=== PATIENT | female | born 1955 | race Caucasian/White ===

== ENCOUNTER 2022-02-02 16:46 | Outpatient (CLI) | payer OTHER, SELFPAY ==
[2022-02-02 18:44] LABS: Hepatitis B Surface Antigen* Negative (Negative)
[2022-02-02 19:09] LABS: HIV 1/2/P24 Combo Screen* Negative (Negative)
[2022-02-02 20:54] LABS: Hepatitis B Surface Antibody* Negative (Negative)
[2022-02-04 14:36] LABS: Hepatitis B Core Antibodies Negative (Negative)
[2022-02-04 17:45] LABS: Rapid Plasma Reagin (RPR) Non Reactive (Non Reactive)
== END 2022-02-02 16:47 | disposition home or self-care (01) ==
PROVIDERS: PCP Internal Medicine; Visit Provider Internal Medicine
DX: N94.9 Unspecified condition associated with female genital organs and menstrual cycle (principal); Z11.3 Encounter for screening for infections with a predominantly sexual mode of transmission; B00.1 Herpesviral vesicular dermatitis
CPT/HCPCS: 86592; 86703; 86704; 86706; 87340

== ENCOUNTER 2022-03-30 10:18 | Outpatient (CLI) | payer OTHER, SELFPAY ==
[2022-03-30 09:04] LABS: Cholesterol* 235 mg/dL (90-199); Glucose* 97 mg/dL (60-115); HDL Cholesterol* 69 mg/dL (>=50); LDL Cholesterol Calculated 144 mg/dL (<100); Triglycerides* 110 mg/dL (40-149)
== END 2022-03-30 10:19 | disposition home or self-care (01) ==
PROVIDERS: PCP Internal Medicine; Visit Provider Internal Medicine
DX: E78.5 Hyperlipidemia, unspecified (principal); Z13.1 Encounter for screening for diabetes mellitus
CPT/HCPCS: 80061; 82947

== ENCOUNTER 2022-05-09 15:13 | Outpatient (CLI) | payer OTHER, SELFPAY ==
--- OUTSIDE RECORDS SUMMARY | 2022-05-09 15:14 | XMS_ITS | Encounter Summary ---
:1955 Author Organization [facility] Address [address] [place] [address] Care Team Providers Name Role Phone Martín Taylor MD Primary Care Provider Reason for Visit Reason Comments Follow-up Encounter Details Date Type Department Care Team Description 03/21/2019 Hospital Encounter [place] [facility] Wyatt Coffman MD [address] [place] [address] (CONVERSION) John, MD Mando CONV OF DATA PN TO [address] [place] [address] Social History Tobacco Use Types Packs/Day Years Used Date Smoking Tobacco: Former Cigarettes Quit : 12/08/1994 Smokeless Tobacco: Never Alcohol Use Standard Drinks/Week Comments Yes 0 (1 standard drink = 0.6 oz pure alcoho l) occassion Sex Assigned at Date Recorded Not on file documented as of this encounter Medications at Time of Discharge Medication Sig Dispensed Refills Start Date End Date atorvastatin (LIPITOR) 10 MG Take 5 mg by mouth. 0 05/17/2016 tablet Calcium Carbonate-Vitamin D Take 1 tablet by 0 (CALCIUM 600+D OR) mouth daily (every 24 hours). cholecalciferol (AKA VITAMIN Take 1,000 Units by 0 12/08/2014 D3) 1000 UNITS tablet mouth daily (every 24 hours). LORazepam (ATIVAN) 2 MG Take 2 mg by mouth. 0 11/2016 tablet Magnesium 200 MG Take 1 tablet by 0 12/08/2014 mouth 3 times daily. omega-3 fatty acids (FISH Take 1 capsule by 0 OIL) 1000 MG capsule mouth daily (every 24 hours). traZODone (DESYREL) 50 MG Take 50 mg by 0 017 tablet mouth. documented as of this encounter Plan of Treatment Not on filedocumented as of this encounter Visit Diagnoses Not on filedocumented in this encounter Care Teams Artificial Leather Calender Operator Relationship Specialty Start Date End Date Martín Taylor MD PCP - General 01/04/[address] [place] [id number] documented as of this encounter
--- OUTSIDE RECORDS SUMMARY | 2022-05-09 15:14 | XMS_ITS | Clinical Summary ---
:1955 Author Organization [facility] Address [address] [place] [address] Care Team Providers Name Role Phone Martín Taylor MD Primary Care Provider Source Comments You are receiving this document as you are listed as the primary care provider,follow-up provider, or the patient has been referred to you for consultation.This is in compliance with the Medicare and Medicaid EHR Incentive Program,which states Providers who transition their patient to another setting of careor provider of care or refers their patient to another provider of care shouldprovide summarycare record for each transition of care or referral. RSB SPINE Allergies Active Allergy Reactions Severity Noted Date Comments Sulfa Antibiotics Itching, Rash 12/08/2014 OHC React ion: Itching; OHC Reaction: Rash; OHC Severity: Med Medications Medication Sig Dispensed Refills Start Date End Date Status omega-3 fatty acids Take 1 capsule 0 12/08/2014 Active (FISH OIL) 1000 MG by mouth daily capsule (every 24 hours). cholecalciferol (AKA Take 1,000 Units 0 12/08/2014 Active VITAMIN D3) 1000 UNITS by mouth daily tablet (every 24 hours). Calcium Take 1 tablet by 0 12/08/2014 Ac tive Carbonate-Vitamin D mouth daily (CALCIUM 600+D OR) (every 24 hours). Magnesium 200 MG Take 1 tablet by 0 12/08/2014 Active mouth 3 times daily. traZODone (DESYREL) 50 Take 50 mg by 0 03/19/2017 Active MG tablet mouth. atorvastatin (LIPITOR) Take 5 mg by 0 05/17/2016 Active 10 MG tablet mouth. LORazepam (ATIVAN) 2 MG Take 2 mg by 0 02/21/2017 Active tablet mouth. Active Problems Problem Noted Date Genital prolapse, old laceration of muscles of pelvic floor 05/01/2017 Generalized anxiety disorder 04/17/2017 Hyperlipidemia 04/17/2017 Lateral epicondylitis 04/19/2007 Degeneration of lumbar or lumbosacral intervertebral d isc 04/19/2007 Congenital spondylolisthesis 04/19/2007 Immunizations Name Administration Dates Next Due Flu Vac (3+ yrs) 03/07/2016, 03/15/2015 Flu Vac Preserv Free (3+yrs) 04/09/2001 Influenza (Flucelvax), Preserv Free 03/27/2018, 03/22/2017, 03/18/2013 Influenza IIV4 (Quadrivalent) 0.5mL 03/21/2019 (72751) Influenza IIV4 (Quadrivalent) Fluzone, 02/15/2012 65+ Yrs TDAP (ADACEL) 05/17/2016 Zoster (Zostavax) 11/20/2012 Zoster RZV (Shingrix) 07/12/2018, 03/14/2018 Family History Medical History Relation Name Comments Cancer, Prostate Father Heart Disease Mother Had valve replac ement Cancer, Breast Cousin paternal Mental Disorder Maternal Grandfather Alzheimer's Disease Cancer, Other Sister 2 Cervical Cancer Cancer, Breast Negative Family History Cancer, Colon Negative Family History Cancer, Uterine Negative Family History Prolapse/Pelvic Parts Falling Negative Family History Down Urinary Incontinence Negative Family History Relation Name Status Comments Father Mother Cousin paternal Alive Maternal Grandfather Sister 1 Sister 2 Social History Tobacco Use Types Packs/Day Years Used Date Smoking Tobacco: Former Cigarettes Quit : 12/08/1994 Smokeless Tobacco: Never Alcohol Use Standard Drinks/Week Comments Yes 0 (1 standard drink = 0.6 oz pure alcoho l) Occasional Use Sex Assigned at Date Recorded Not on file Last Filed Vital Signs Vital Sign Reading Time Taken Comments Blood Pressure 145/69 06/25/2019 4:01 PM HOME CARE LIAISON Pulse 61 06/25/2019 4:01 PM HOME CARE LIAISON Temperature - - Respiratory Rate - - Oxygen Saturation - - Inhaled Oxygen Concentration - - Weight 62.1 kg (137 lb) 12/08/2014 2:00 PM CDT Height 161.3 cm (5' 3.5) 02/21/2018 3:39 PM CDT Body Mass Index 24.27 12/08/2014 2:00 PM CDT Plan of Treatment Health Maintenance Due Date Last Done Comments Hep C Screening (Preventive 1955 Services) Mammogram 1955 COVID-19 Vaccine (#1) 1955 Adult Preventive Visit 01/04/1974 Cologuard (Stool DNA) 2000 Cholesterol 01/04/2001 Pneumococcal 65+ Yrs (1 - 01/04/2021 PCV) Influenza (#1) 2022 04/09/2020, 03/21/2019, 03/21/2019, Additional history exists DTaP/Tdap/Td (2 - Tdap) 05/17/2026 05/17/2016 Dexa Completed 02/15/2012 (Completed) Zoster/Shingles Completed 07/12/2018, 03/14/2018, 11/20/2012 HepA Aged Out No longer eligib le based on patient 's age to complete this topic HepB Aged Out No longer eligib le based on patient 's age to complete this topic Hib Aged Out No longer eligib le based on patient 's age to complete this topic IPV (Polio) Aged Out No longer eligib le based on patient 's age to complete this topic MCV4 Aged Out No longer eligib le based on patient 's age to complete this topic Insurance Payer Benefit Plan / Subscriber ID Effective Dates Phone Addre ss Type Group [employer]ED [id number] 2017-Present Commercial Dannielle Franklin Personal/Famil Self 1955 [phone]Home) [place] [address] Dannielle Franklin Personal/Famil Self 1955 [phone]Home) [facility] [phone] [address] (Work) [phone] Dannielle Franklin Personal/Famil Self 1955 [phone] (Home) [place] [phone] (Work) Care Teams Dance Master Relationship Specialty Start Date End Date Martín Taylor MD PCP - General 01/04/[address] [place] [address] [id number]
--- OUTSIDE RECORDS SUMMARY | 2022-05-09 15:14 | XMS_ITS | Encounter Summary ---
:1955 Author Organization [employer] [facility] Address [address], [place] [address] Care Team Providers Name Role Phone Martín aTylor MD Primary Care Provider Reason for Visit Reason Comments Pelvic Health Encounter Details Date Type Department Care Team Description 05/29/2018 [facility] Rivka Hansen, PT Myofascial pain (Primary Dx); Physical Therapy [address] Abdominal pain, unspecified abdominal lo cation [address] [facility]- [address]th [place] [phone] (Wo rk) Social History Tobacco Use Types Packs/Day Years Used Date Smoking Tobacco: Former Cigarettes Quit : 12/08/1994 Smokeless Tobacco: Never Alcohol Use Standard Drinks/Week Comments Yes 0 (1 standard drink = 0.6 oz pure alcoho l) occassion Sex Assigned at Date Recorded Not on file documented as of this encounter Progress Notes Rivka Hansen, PT - 05/29/2018 3:30 PM CST Encounter date: 05/29/2018 Pt : 1955 [place] [facility] Progress Note Visit Number: 3 (HP Self Insured) Initial Certification Period: 03/05/2018 to??06/03/18 Referring Provider:??Carrie Pratt Visit Diagnosis: 1. Abdominal pain, unspecified abdominal location 2. Myofascial pain? Precautions:??None SUBJECTIVE: Hasn't been too consistent with her exercises. Has continued working on her house - is having company for [employer]. Is interested in the cables for her E-stim but hasn't ordered yet as wanted to talk to me as to whether she should proceed with this or order TENS. Was a little flared day of last treatment but then eased. Is not using the bathroom now all the time - is more conscious of putting off the urge. Is going every 2-3 hours during the day - up once at the most at night - rarely is up. Abdominal pain today 07/28 - hasn't been doing the excessive physical activity lately. OBJECTIVE Current Objective Findings: Patient owns a Pathway STM-10 with single pelvic floor internal electrode chin Continued tenderness with palpation of rectus abdominis, especially with contraction, but less intense than previous. Moderate- tenderness with manual lateral glide at vertical central scar. Decreased to moderate stinging tenderness with gentle scar rolling or deeper palpation along palpable tissue ridge just cranial to horizontal scar. Scar pliability still superficially mildly restricted into cranial glide - especially at L midline into cranial and lateral glide. Treatment/Education Today: Therapeutic Exercise (CPT 28093): 14 minutes Reviewed Jerry stretch - with active pelvic tilt - good stretch sensed - with contralateral UE raise overhead with abdominal stretch - provided picture of this Reviewed previous HEP from [place]: Modified pigeon pose Cobra and prone on elbows (MARTA) - held full cobra as this was causing LB pain - to continue with POEwith relaxation into extension. Cat/camel Afshan' pose Manual therapy, 1 or more regions (CPT 97236): 20 minutes Continued gentle soft tissue mobilization/direct and indirect release techniques throughout horizontal suprapubic and vertical scars - patient consistently noted pain referral into upper L>R quadrants with this, as well as localized pain. Very gentle skin rolling on scar - some residual increased stinging with this. Neuromuscular Reeducation (CPT 91915): 3 minutes Reviewed deep diaphragmatic breathing as means of PFM relaxation and parasympathetic activation - aswell as abdominal fascial stretch. -Therapeutic activity (CPT 10348): 10 minutes Reviewed using pelvic floor muscle (PFM) E-stim unit again - with conscious PFM contraction with it. Advised patient re: costs of purchase for adapter cable for her Pathway STM-10. Looked up additionaloptions for TENS units and opted to recommend purchase of TENS 7000 - available on [employer] with free shipping for less expense. Patient very receptive to trying TENS, as has friends that feel they benefit from it and cost is an issue. Reviewed possible abdominal electrode placement for pain. Timed Code Treatment Minutes: 46 Total Treatment Minutes: 46 Current Home Exercise Program List: Jerry hip flexor stretch Diaphragmatic breathing Self abdominal fascial releases Modified pigeon pose MARTA Cat/camel Afshan' pose ASSESSMENT/PROGRESS TOWARD GOALS: Ongoing lower abdominal and suprapubic pain, since abdominal surgery 01/17/2017 for hysterectomy and cystocele repair - symptoms definitely decreased from previous from previous status, although patient hasn't been as physically active lately. Residual scar and lower abdominal adherenece but decreasing - positive tissue response to gentle manual work - patient able to demonstrate understanding of self release techniques. Patient will resume use of her PFM E-stim unit - per mutual agreement, will order an inexpensive TENS unit and trial for abdominal pain - she will call me when she gets it and I will advise further re:electrode placement. Will most likely then discharge to self management. Functional Goals/Outcomes: Patient will report symptom reduction from 5-8/10 to 3-4/10 related to pain complaint - MET - pain 2/10 today (although hasn't been as physically active) Report successful home exercise to allow for above noted functional gains in 12 weeks - MET - patient able to demonstrate understanding of HEP. Patient will be able to return to walking and exercise as desired without abdominal pain increasing in 12 weeks - IMPROVING Additional goal added today - decreased urge leakage to none in 12 weeks - MET. Plan: Patient to do self releases and PFM strengthening - will order TENS 7000 or similar online and call when she receives it - we will further then discuss electrode placement. Anticipate discharge on self management. ?? E MIXER documented in this encounter Plan of Treatment Not on filedocumented as of this encounter Visit Diagnoses Diagnosis Myofascial pain - Primary Mylagia and myositis, unspecified Abdominal pain, unspecified abdominal lo cation documented in this encounter Care Teams Cartoonist Special Effects Relationship Specialty Start Date End Date Martín Taylor MD PCP - General 01/04/07 [address], [place] [phone] documented as of this encounter
--- OUTSIDE RECORDS SUMMARY | 2022-05-09 15:14 | XMS_ITS | Encounter Summary ---
:1955 Author Organization [facility] Address [address] [address] Care Team Providers Name Role Phone Martín Taylor MD Primary Care Provider Reason for Visit Reason Comments Follow-up Encounter Details Date Type Department Care Team Description 06/25/2019 [facility] Valeriano Sands Urinar y incontinence, Urogynecology unspecified type [address] (Primary Dx) [facility] [address] [place] [address] [place], [place] [phone] (Wo rk) Social History Tobacco Use Types Packs/Day Years Used Date Smoking Tobacco: Former Cigarettes Quit : 12/08/1994 Smokeless Tobacco: Never Alcohol Use Standard Drinks/Week Comments Yes 0 (1 standard drink = 0.6 oz pure alcoho l) occassion Sex Assigned at Date Recorded Not on file documented as of this encounter Last Filed Vital Signs Vital Sign Reading Time Taken Comments Blood Pressure 145/69 06/25/2019 4:01 PM PROGRESS DEVELOPER Pulse 61 06/25/2019 4:01 PM PROGRESS DEVELOPER Temperature - - Respiratory Rate - - Oxygen Saturation - - Inhaled Oxygen Concentration - - Weight - - Height - - Body Mass Index - - documented in this encounter Patient Instructions Patient InstructionsAmy Roca RN - 06/25/2019 4:00 PM CST 1. Pelvic floor physical therapy. 2. Follow up as needed. RESS DEVELOPER documented in this encounter Progress Notes Amy Roca RN - 06/25/2019 4:00 PM CST I was present during today's encounter. RESS DEVELOPER Valeriano Sands MD - 06/25/2019 4:00 PM CST Not including the procedure, I spent more than 25 minutes face to face with Dannielle Franklin and morethan 50% of this time was spent in counseling about treatment options. The urogynecology nurse was present for today's encounter. RESS DEVELOPER Valeriano Sands MD - 06/25/2019 12:00 PM CST NAME: DANNIELLE FRANKLIN MR#: [id number] CSN: [id number] AUTHENTICATING CLINICIAN: aVleriano Sands MD CONFIRM #: [id number] LOC: 210 CLINIC PROGRESS NOTE DATE OF VISIT: 06/25/2019 : 1955 Dannielle, who is a previous patient of [facility] and as well as Dr. Rivas, came in today for followup.She originally was a second opinion status post reconstructive repair, which was a sacrocolpopexy approach performed in [place]. It was an abdominal approach. Unfortunately, she developed some significant pain complications; please see our initial consultation for more information. Today the patient is returning for an additional issue. Her main concern today was that of pre-void dribbling as well as what appeared to be urinary leakage with laughing, coughing, and sneezing. She also was seen byanother provider and told that she did appear to have a persistent prolapse and record review of my initial consultation in 2018 shows that she did have persistent mild grade 1 cystocele which was asymptomatic. The patient does deny any bulge or pressure coming from the vagina but she is curious to find out if this is a failure the original procedure or not. When I did inquire little bit more about her urinary leakage episodes, it appears that when she has an urge to go, she will stand up and dribble a small amount. This is not postvoid dribbling. This is pre-void dribbling and may represent some le roe of overactive bladder versus stress urinary incontinence. However, she does describe when she has a full bladder and she coughs or sneezes, she will have some dribbling as well. PHYSICAL EXAMINATION: Today I did re-examine Dannielle and again she has a persistent grade 1 cystocele, which does not appear to have progressed any further since our last evaluation in 2018. She had a negative empty supinestress test. PROCEDURE: At this time, we did trial a pessary. A #1 anti incontinence ring was placed but unfortunately fell out. A #2 was too large. We did trial a #1 dish pessary but this was also uncomfortable to the patient and it fell out. She has opted for observation at this point in time. ASSESSMENT: 1.Urinary incontinence which appears to be stress-related as well as an additional component of pre-void dribbling which may represent overactive bladder. 2.Failed pessary trials. PLAN: Today, I spent time with Dannielle discussing options available to her. At this time, she will just continue to watch her urinary incontinence. We have offered her further investigation including diagnostic testing which would include urodynamics testing. She has opted to return to our clinic p.r.n. DBW:ELAINE C: CONFIRM #: [id number] RESS DEVELOPER documented in this encounter Plan of Treatment Not on filedocumented as of this encounter Visit Diagnoses Diagnosis Urinary incontinence, unspecified type - Primary documented in this encounter Care Teams Grid Operator Relationship Specialty Start Date End Date Martín Taylor MD PCP - General 01/04/07 [address] [place] [address] documented as of this encounter
--- OUTSIDE RECORDS SUMMARY | 2022-05-09 15:15 | XMS_ITS | Encounter Summary ---
:1955 Author Organization [facility] Address [address], [place] [address] Care Team Providers Name Role Phone Martín Taylor MD Primary Care Provider Encounter Details Date Type Department Care Team Description 12/17/2014 Imaging [place] [facility] Post-menopausal bleeding [address] [place] [address] Social History Tobacco Use Types Packs/Day Years Used Date Smoking Tobacco: Never Assessed Sex Assigned at Date Recorded Not on file documented as of this encounter Progress Notes Courtney Lee RN - 12/23/2014 5:27 PM CDT Quick Note: see phone note. Mirian Rivas MD - 12/21/2014 8:19 AM CDT Quick Note: Please let pt know that her ultrasound showed 2 very small fibroids (benign). Both ovaries looked normal. She should call when she is ready to proceed with surgery for her prolapse. documented in this encounter Miscellaneous Notes Miscellaneous - 07/27/2016 6:19 AM CSTNotes Recorded by Courtney Lee RN on 12/23/2014 at 5:27 PMsee phone note.------Notes Recorded by Mirian Rivas MD on 12/21/2014 at 8:19 AMPlease let pt know that her ultrasound showed 2 very small fibroids (benign). Both ovaries looked normal. She should call when she is ready to proceed with surgery for her prolapse. 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 documented in this encounter Results US Pelvic Complete W EV (12/17/2014 8:45 AM CDT) Anatomical Region Laterality Modality Pelvis Other Specimen (Source) Anatomical Location Collection Method / Collectio n Time Received Time / Laterality Volume Impressions 12/17/2014 10:31 AM CDT IMPRESSION: 1. Likely fibroid uterus including an 8 mm exophytic subserosal fibroid anteriorly. 2. Otherwise unremarkable pelvic ultraso und. Narrative 12/17/2014 10:31 AM CDT COMPARISON: ??None. TECHNIQUE: ??Transabdominal and transvag inal imaging was performed. FINDINGS: ?? Uterus: Measures 4.9 x 1.9 x 3.2 cm. 8 m m exophytic lesion along the anterior margin of the mid uterus, likely subserosal fibroid. There is a second hypoechoic lesion in the anterior lower uterine segments ingesting second fibroid. Endometrium: Scant fluid in the endometr ial cavity. Endometrial stripe measures 2-3 mm in thickness. ?? Right Ovary: Measures 1.0 x 1.4 x 1.0 cm and Appears unremarkable. Left Ovary: Measures 1.0 x 1.7 x 0.9 cm and Appears unremarkable. No significant free fluid free fluid. Procedure Note Martín Bazzi, DO - 12/05/2015For matting of this note might be different from the original. COMPARISON: None. TECHNIQUE: Transabdominal and transvagin al imaging was performed. FINDINGS: Uterus: Measures 4.9 x 1.9 x 3.2 cm. 8 m m exophytic lesion along the anterior margin of the mid uterus, likely subserosal fibroid. There is a second hypoechoic lesion in the anterior lower uterine segments ingesting second fibroid. Endometrium: Scant fluid in the endometr ial cavity. Endometrial stripe measures 2-3 mm in thickness. Right Ovary: Measures 1.0 x 1.4 x 1.0 cm and Appears unremarkable. Left Ovary: Measures 1.0 x 1.7 x 0.9 cm and Appears unremarkable. No significant free fluid free fluid. IMPRESSION IMPRESSION: 1. Likely fibroid uterus including an 8 mm exophytic subserosal fibroid anteriorly. 2. Otherwise unremarkable pelvic ultraso und. Transcriptions Martín Bazzi, DO - 07/27/2016 6: 19 AM CSTNotes Recorded by Courtney Lee RN on 12/23/2014 at 5:27 PMsee phone note.------Notes Recorded by Mirian Rivas MD on 12/21/2014 at 8:19 AM Please let pt know that her ultrasound s howed 2 very small fibroids (benign). Both ovaries looked normal. She should call when she is ready to proceed with surgery for her prolapse. Mirian Rivas MD [facility] documented in this encounter Visit Diagnoses Diagnosis Post-menopausal bleeding Postmenopausal bleeding documented in this encounter Care Teams Clamp Operator Relationship Specialty Start Date End Date Martín Taylor MD PCP - General 01/04/[address] [place] [id number] documented as of this encounter
--- OUTSIDE RECORDS SUMMARY | 2022-05-09 15:15 | XMS_ITS | Encounter Summary ---
:1955 Author Organization [facility] Address [address] [place] [address] Care Team Providers Name Role Phone Unavailable Primary Care Provider Unavailable Reason for Visit Reason Comments PAIN, LUQ Encounter Details Date Type Department Care Team Description 02/02/1999 Telephone Careline Allegra Cook, RN PAIN, LUQ [address] [place], [place] [address] [place] [phone] [facility] [address] Social History Tobacco Use Types Packs/Day Years Used Date Smoking Tobacco: Never Assessed Sex Assigned at Date Recorded Not on file documented as of this encounter Nursing Notes 02/02/1999 11:59 PM CDT >> CALL RECEIVED. Contact: self [phone] >> ALLEGRA COOK 02/02/1999 05:48 am 44 y/o female calling at 5:12 AM about pains behind her lf breast. Sx about 10 hrs. no sob, no fever, no chills, no radiation of the pain to arm or shoulder or jaw. no cough, no sweating. No rash, no c/o s.t. She has no heart hx. MEDS: none. PMH: nl healthy. To [facility] documented in this encounter Plan of Treatment Not on filedocumented as of this encounter Visit Diagnoses Not on filedocumented in this encounter
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
--- OUTSIDE RECORDS SUMMARY | 2022-05-09 15:15 | XMS_ITS ---
:1955 Author Care Team Providers Name Role Phone Darby Michael Primary Care Provider Unavailable Allergies Code Code System Name Reaction Severity Status Onset 3640 RxNorm Doxycycline ? ? Active ? Sulfa (Sulfonamide Antibiotics) ? ? Active ? Medications Name Status Start Date Stop Date ? ? albuterol sulfate HFA 90 mcg/actuation aerosol inhaler Completed ? 04/27/2022 INHALE ONE PUFF BY MOUTH EVERY FOUR TO SIX HOURS NEEDED for shortness of breath amoxicillin 875 mg tablet Active ? Not av ailable TAKE ONE TABLET BY MOUTH TWICE DAILY UNTIL GONE azithromycin 250 mg tablet Completed ? 04/27 TAKE 2 TABLETS BY MOUTH ON DAY 1, THEN 1 TABLET DAILY ON DAYS 2 -5. azithromycin 500 mg tablet Completed ? 04/27 TAKE ONE TABLET BY MOUTH ONE TIME DAILY fluticasone propionate 50 mcg/actuation nasal spray,suspension C ompleted ? 04/27/2022 spray twice into each nostril once daily. lorazepam 2 mg tablet Active ? Not availa ble TAKE ONE TABLET BY MOUTH AT BEDTIME NEEDED for sleep Premarin 0.625 mg/gram vaginal cream Active ? Not available Insert 1/2 applicatorful vaginally at b edtime x 2 weeks, then 2-3 times per week for maintenance simvastatin 5 mg tablet Active ? Not avai lable TAKE ONE TABLET BY MOUTH ONE TIME DAILY AT BEDTIME trazodone 50 mg tablet Active ? Not avail able TAKE ONE TABLET BY MOUTH AT BEDTIME valacyclovir 1 gram tablet Active ? Not a vailable TAKE ONE TABLET BY MOUTH ONE TIME DAILY FOR 3 DAYS valacyclovir 500 mg tablet Active ? Not a vailable Take 1 tablet by mouth daily for suppre ssion of HSV. If outbreak occurs take 1 tablet by mouth twice a day x 3 days Problems No Known Problems Procedures Date Name Performed by ? 01/27/2017 Total Hysterectomy Information not avai lable Notes: Total abdominal with bilateral tubes, ovaries still there 06/18/1989 Knee Arthroscopy/surgery Information not available Notes: ACL recontruction Results Lab Results Date Name Specimen Result Interpretation Description Value Range Status Address ? 04/27/2022 Urinalysis, ? Result Clean ? ? [id number]: Dipstick Source Catch [address] [facility] [address], [place] ? ? ? Result negative ? ? Cc003_m etropartandrae_[place]: Glucose [address] [facility] [address] (mg/DL) [address], [address] [place] ? ? ? Result negative ? ? Cc003_m etropartners_[place]: Bilirubin [address] [facility] [address] /Negative [address], [place] [address] [place] ? ? ? Result negative ? ? Cc003_m etropartners_[place]: Ketones/N [address] [facility] [address], Bre [address] [place] ? ? ? Result 1.015 ? ? [id number] ropjackie_[place]: Specific [address] [facility] [address] [place], [place] [address] [place] .000 ? ? ? Result negative ? ? Cc003_m etropartandrae_[place]: Blood/Neg [address] [facility] [address], [place] ? ? ? Result 6.5 ? ? [id number]_iko ropartandrae_[place]: pH/5.0 - [address] [facility] [address], [place] ? ? ? Result negative ? ? Cc003_m etmeghanartandrae_[place]: Protein/N [address] [facility] [address], [facility] [place] ? ? ? Result 0.2 ? ? [id number]_jty ropartandrae_[place]: Urobilino [address] [facility] [address], [place] (EU/dl)/ 0.2 - 1.0 ? ? ? Result negative ? ? Cc003_m etropartners_[place]: Nitrite [address] [facility] [address], [place] ? ? ? Result negative ? ? Cc003_m etropartners_[place]: Leukocyte [address] [facility] [address]/Negativ [address], Sa int [place] e ? ? ? Result yellow ? ? [id number] ropartners_[place]: Color/ [address] [facility] [address] Yellow to [address], Sa [address] [place] ? ? ? Result clear ? ? [id number]_sfc ropartners_[place]: Appearanc [address] [facility] [address], [place] 04/27/2022 Bacterial Norm Gardnere Negative nega Estela [id number]: Vaginosis + al lla tive l [address] [place] [address] [address], [facility] Panel, Vaginal ? ? Norm Trichomo Negative nega Estela Cc003 _[facility] [place]: al mario tive l [address] [place] [address] [address], [place] ? ? Norm Aditi Negative nega Estela Cc003_ [facility] [place]: al tive l [address] [place] [address] [address], [place] Past Encounters 04/27/2022 Vaginitis; Atrophic Vaginitis; Herpes Si mplex Darby Michael MD: [address] [facility] , [address], [place] [address], Ph. Social History Tobacco Smoking Status Never Smoker Vaccine List None recorded. Plan of Care Reminders Provider Appointments None recorded. ? ? Lab None recorded. ? ? Referral None recorded. ? ? Procedures None recorded. ? ? Surgeries None recorded. ? ? Imaging None recorded. ? ? Vitals Height Weight BMI Blood Pressure 5 ft 3.5 in 129 lbs 22.5 kg/m2 122/74 mm[Hg]
--- OUTSIDE RECORDS SUMMARY | 2022-05-09 15:15 | XMS_ITS | Encounter Summary ---
:1955 Author Organization [facility] Address [address] [place] [address] Care Team Providers Name Role Phone Martín Taylor MD Primary Care Provider Encounter Details Date Type Department Care Team Description 11/05/1998 PN Conversion Only [facility] CONVERSION Non Pn, Clinician, [facility] [place] [address] Social History Tobacco Use Types Packs/Day Years Used Date Smoking Tobacco: Never Assessed Sex Assigned at Date Recorded Not on file documented as of this encounter Plan of Treatment Not on filedocumented as of this encounter Procedures Procedure Name Priority Date/Time Associated Comments Diagnosis CONVERSION DEFAULT Routine 11/03/1998 6:32 AM Res ults for this INTERFACE ORDER CDT procedure ar e in the results section. documented in this encounter Results Conversion Default Interface Order (11/03/1998 6:32 AM CDT) P athologist Signature PAP Smear See Detail HP CONVERSION Comment: Patient: DANNIELLE FRANKLIN ?CERVICAL CYTOLOGY REPORT Pathology # ??[id number] ?Date Obtained: ?Date Received: LMP: ?10-24-98 CLINICAL HIST CERVICAL SMEAR SPECIMEN ADEQUACY: ??Satisfactory but l imited by absence of endocervical ? cells. CYTOLOGIC IMPRESSION: Within Normal Limits (Negative). 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
--- OUTSIDE RECORDS SUMMARY | 2022-05-09 15:15 | XMS_ITS | Encounter Summary ---
:1955 Author Organization [facility] Address [address], [place] [address] Care Team Providers Name Role Phone Martín Taylor MD Primary Care Provider Reason for Visit Reason Comments Pelvic Health Encounter Details Date Type Department Care Team Description 04/24/2018 [facility] Rivka Hansen, PT Myofascial pain (Primary Dx); Physical Therapy [address] Abdominal pain, unspecified abdominal lo cation [address] [facility]- [address]th [place] [phone] (Wo rk) Social History Tobacco Use Types Packs/Day Years Used Date Smoking Tobacco: Former Cigarettes Quit : 12/08/1994 Smokeless Tobacco: Never Alcohol Use Standard Drinks/Week Comments Yes 0 (1 standard drink = 0.6 oz pure alcoho l) occassion Sex Assigned at Date Recorded Not on file documented as of this encounter Progress Notes Rivka Hansen PT - 04/24/2018 3:30 PM CST Encounter date: 04/24/2018 Pt : 1955 [facility] Physical Therapy Progress Note Visit Number: 2 (HP Self Insured) Initial Certification Period: 03/05/2018 to 06/03/18 Referring Provider: Carrie Pratt Visit Diagnosis: 1. Abdominal pain, unspecified abdominal location 2. Myofascial pain ?? Precautions: None SUBJECTIVE: Was a little flared day of last treatment but then eased. Seems like she's been having more involuntary drips of urine - primarily when she gets an urge. 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 Abdominal pain is worse - up to 01/25 when she does more physical activity, ie yardwork, climbing ladder and cleaning gutters, lifting, up and down stairs. Feels a little pinchy today after work 08/25. Has found and brought in her pelvic floor E-stim unit for me to assess. OBJECTIVE Current Objective Findings: Patient owns a Pathway STM-10 with single pelvic floor internal electrode chin Continued tenderness with palpation of rectus abdominis, especially with contraction. Moderate= tenderness with manual lateral glide at vertical central scar. Moderate+ stinging tenderness with gentle scar rolling or deeper palpation along palpable tissue ridge just cranial to horizontal scar. Scar pliability superficially mildly restricted into cranial glide - especially at L midline into cranial and lateral glide. Treatment/Education Today: Therapeutic Exercise (CPT 19619): 15 minutes Instructed in and performed and written instructions provided: -half kneeling hip flexor stretch - this bothered her LB and knee so held further -Jerry stretch - with active pelvic tilt - good stretch sensed - added contralateral UE raise overhead with abdominal stretch Verbal review of her previous HEP from [place] (patient reports not doing this consistently lately but prior to this did every early AM): Modified pigeon pose Cobra and prone on elbows (MARTA) Afshan' pose Cat/camel Manual therapy, 1 or more regions (CPT 54723): 20 minutes Continued gentle soft tissue mobilization/direct and indirect release techniques throughout horizontal suprapubic and vertical scars - patient consistently noted pain referral into upper L>R quadrants with this, as well as localized pain. Very gentle skin rolling on scar - some residual increased stinging with this. Neuromuscular Reeducation (CPT 02214): 4 minutes Reviewed deep diaphragmatic breathing as means of PFM relaxation and parasympathetic activation - used throughout treatment. -Therapeutic activity (CPT 56338): 12 minutes Instructed in self abdominal fascial tissue releases - throughout scar and other abdominal tender points - patient practiced in treatment. Advised patient that she can start using pelvic floor muscle (PFM) E-stim unit again - with conscious PFM contraction with it - Instructed in development of bladder control and reciprocal reflex between PFM and bladder. Advised patient that bladder urge leakage can increase with stress and this might be reason for more recent small amount of leakage - patient to monitor. Instructed in possible abdominal electrode placement for pain - if I can locate an electrode that will fit her unit. Timed Code Treatment Minutes: 51 Total Treatment Minutes: 51 Current Home Exercise Program List: Jerry hip flexor stretch Previous abdominal mobilization exercises per HEP from [place] Diaphragmatic breathing Self abdominal fascial releases ASSESSMENT/PROGRESS TOWARD GOALS: Ongoing lower abdominal and suprapubic pain, since abdominal surgery 01/17/2017 for hysterectomy and cystocele repair - symptoms have decreased from initial intensity, but are still bothersome, especially after increased activity doing household tasks or yardwork. Residual scar and lower abdominal adherenece - positive tissue response to gentle manual work - patient able to demonstrate understanding of self release techniques. Some mild urge leakage lately, which may be related to PFM weakness and stress - patient aware of how to contract PFM and will resume use of her E-stim unit and HEP. I will check on whether I can acquire additional cables for her to use E-stim unit for abdominal pain. At patient request, will treat sparingly due to financial concerns and distance from her home. Warrants further treatment. Functional Goals/Outcomes: Patient will report symptom reduction from 5-8/10 to 3-4/10 related to pain complaint Report successful home exercise to allow for above noted functional gains in 12 weeks Patient will be able to return to walking and exercise as desired without abdominal pain increasing in 12 weeks Additional goal added today - decreased urge leakage to none in 12 weeks. Plan: Patient to do self releases and PFM strengthening - continue as appropriate in one month: Reassess lower abdominal fascial restrictions and continue gentle manual techniques as appropriate. Review self release techniques. Review Jerry hip flexor stretches - with overhead reaching. Review [place] HEP if needed. Review diaphragmatic breathing. If I can find a way to modify her E-stim unit for use of surface electrodes, then instruct patient in this. If not, then make recommendations for purchase of less expensive TENS type unit online. May discharge on self management - or schedule follow-up 1-2 months out. ?? OVEN TENDER documented in this encounter Plan of Treatment Not on filedocumented as of this encounter Visit Diagnoses Diagnosis Myofascial pain - Primary Mylagia and myositis, unspecified Abdominal pain, unspecified abdominal lo cation documented in this encounter Care Teams Alternative Energy Engineer Relationship Specialty Start Date End Date Martín aTylor MD PCP - General 01/04/[address] [place] [id number] documented as of this encounter
--- OUTSIDE RECORDS SUMMARY | 2022-05-09 15:15 | XMS_ITS | Encounter Summary ---
:1955 Author Organization [facility] Address [address] [place] [address] Care Team Providers Name Role Phone Martín Taylor MD Primary Care Provider Encounter Details Date Type Department Care Team Description 12/05/2011 Hospital Encounter [facility] [place] [address] [place] [address] Social History Tobacco Use Types Packs/Day Years Used Date Smoking Tobacco: Never Assessed Sex Assigned at Date Recorded Not on file documented as of this encounter Plan of Treatment Not on filedocumented as of this encounter Visit Diagnoses Not on filedocumented in this encounter Care Teams Rotary Soil Stabilizer Relationship Specialty Start Date End Date Martní Taylor MD PCP - General 01/04/07 [address] [place] [id number] documented as of this encounter
--- OUTSIDE RECORDS SUMMARY | 2022-05-09 15:15 | XMS_ITS | Encounter Summary ---
:1955 Author [facility] Address [address] [address] Care Team Providers Name Role Phone Martín Taylor MD Primary Care Provider Encounter Details Date Type Department Care Team Description 02/03/2015 Notes/Orders [facility] Mirian Rivas, Urogynecology [address] [place] [id number] [phone] Social History Tobacco Use Types Packs/Day Years Used Date Smoking Tobacco: Never Assessed Sex Assigned at Date Recorded Not on file documented as of this encounter Progress Notes Mirian Rivas MD - 02/03/2015 8:55 AM CDT Record of patient's previous Pap obtained. Pap 03/2014 demonstrated no evidence of intraepithelial lesion or malignancy. Copy sent to [employer]. documented in this encounter Plan of Treatment Not on filedocumented as of this encounter Visit Diagnoses Not on filedocumented in this encounter Care Teams Healthcare Receptionist Relationship Specialty Start Date End Date Martín Taylor MD PCP - General 01/04/[address] [place] [phone] documented as of this encounter
--- OUTSIDE RECORDS SUMMARY | 2022-05-09 15:15 | XMS_ITS | Encounter Summary ---
:1955 [facility] Address [address] [place] [address] Care Team Providers Name Role Phone Martín Taylor MD Primary Care Provider Reason for Visit Reason Comments Dental Conversion [facility] to [place] convers ion Encounter Details Date Type Department Care Team Description 11/23/2016 Dental Conversion [facility] Alex Ramos [facility] D[facility] [address] [place] [address] [place], [place] [phone] Social History Tobacco Use Types Packs/Day Years Used Date Smoking Tobacco: Never Assessed Sex Assigned at Date Recorded Not on file documented as of this encounter Discharge Summaries Interface, In Edr Dental Conversion - 02/24/2017 12:00 AM CDT 02/24/2017: EDR Pt Notes: [phone] [facility] documented in this encounter Plan of Treatment Not on filedocumented as of this encounter Visit Diagnoses Not on filedocumented in this encounter Care Teams Batch Blender Relationship Specialty Start Date End Date Martín Taylor MD PCP - General 01/04/07 [address] [place] [id number] documented as of this encounter
--- OUTSIDE RECORDS SUMMARY | 2022-05-09 15:15 | XMS_ITS | Encounter Summary ---
:1955 Author [facility] Address [address] [address] Care Team Providers Name Role Phone Martín Taylor MD Primary Care Provider Reason for Visit Reason Comments CONSULT Encounter Details Date Type Department Care Team Description 12/08/2014 Initial Consult [facility] Kamilah Rivas al prolapse, incomplete (Primary Dx); Urogynecology Mirian Aquino MD Vaginal atrophy; [address] usal bleeding; [address] Stress incontinence [facility] [address] [phone] Social History Tobacco Use Types Packs/Day Years Used Date Smoking Tobacco: Never Assessed Sex Assigned at Date Recorded Not on file documented as of this encounter Last Filed Vital Signs Vital Sign Reading Time Taken Comments Blood Pressure 108/69 12/08/2014 2:00 PM CDT Pulse 57 12/08/2014 2:00 PM CDT Temperature - - Respiratory Rate - - Oxygen Saturation - - Inhaled Oxygen Concentration - - Weight 62.1 kg (137 lb) 12/08/2014 2:00 PM CDT Height 160 cm (5' 3) 12/08/2014 2:00 PM CDT Body Mass Index 24.27 12/08/2014 2:00 PM CDT documented in this encounter Progress Notes Mirian Rivas MD - 12/14/2014 8:28 AM CDT UROGYNECOLOGY CONSULTATION CHIEF COMPLAINT: prolapse HPI: 59 y.o. post menopausal female. Patient presents for evaluation secondary to prolapse. The patient was previously seen at [place] in 2011. She brings records with her and these were reviewed today. At the time of that evaluation, she elected to be fitted with a pessary. The patient reports that leigha e used that pessary for quite a while. She never used estrogen cream in conjunction with the pessary. She subsequently started having spotting. Due to concern, she stopped using the pessary and the spotting stopped. Today, the patient presents to discuss options for management of her prolapse. She read the article in the [employer] last year and this prompted her to seek additional care for her prolapse. She continues to see and feel a bulge from her vagina. She thinks it has gotten a little bit bigger. In terms of urinary symptoms, she leaks with coughing or sneezing. The patient's partner was present for the discussion portion of the visit. Prolapse symptoms: See/feel bulge: yes Pelvic pressure: yes Manually reduce: no Splint: no Void: n/a Defecate: n/a Urinary symptoms: Leak with cough, sneeze, laugh: yes Frequency: no Urgency: yes Leak associated with an urge: no Insensate leakage: no Feels that empties completely: yes Dysuria: no Hematuria: no Bowel symptoms: Bowel habit: irregular, BM every 2-3 days Constipation: yes Diarrhea: no Fecal incontinence: no Bowel regimen: yes Type: magnesium TID Sexually active: yes OBSTETRIC HISTORY: Vaginal delivery: 0 delivery: 0 PAST GYNECOLOGIC HISTORY: Last Pap test: unknown History of abnormal Pap tests: denies History reviewed. No pertinent past medical history. Past Surgical History Procedure Laterality Date ??? Knee surgery 1989 ACL reconstruction Current Outpatient Prescriptions Medication Sig Dispense Refill ??? atorvastatin (LIPITOR) 10 mg tablet Take 10 mg by mouth daily (every 24 hours). ??? CALCIUM CARBONATE/VITAMIN D3 (CALCIUM 600 + D ORAL) Take 1 tablet by mouth daily (every 24 hours). ??? cholecalciferol (VITAMIN D3) 1,000 unit tablet Take 1,000 Units by mouth daily (every 24 hours). ??? [START ON 12/10/2014] estradiol (ESTRACE) 0.01 % (0.1 mg/gram) vaginal cream Place 1 g vaginally twice a week. 42.5 g 3 ??? LORazepam (ATIVAN) 1 mg tablet Take 1 mg by mouth every 6 hours as needed for Anxiety. ??? Magnesium 200 mg Tab Take 1 tablet by mouth 3 times daily. ??? multivitamin, stress formula (VITAMIN B COMPLEX WITH C) tablet Take 1 tablet by mouth daily (every 24 hours). ??? omega-3 fatty acids-fish oil 340-1,000 mg capsule Take 1 capsule by mouth daily (every 24 hours). No current facility-administered medications for this visit. Allergies Allergen Reactions ??? Sulfa (Sulfonamide Antibiotics) Itching and Rash Family History Problem Relation Age of Onset ??? Cancer, Breast Neg Hx ??? Cancer, Colon Neg Hx ??? Cancer, Uterine Neg Hx ??? Prolapse/pelvic parts falling down Neg Hx ??? Urinary incontinence Neg Hx History Social History ??? Marital Status: Single Spouse Name: N/A Number of Children: N/A ??? Years of Education: N/A Social History Main Topics ??? Smoking status: Former Smoker Quit date: 12/08/1994 ??? Smokeless tobacco: None ??? Alcohol Use: Yes Comment: occassion ??? Drug Use: None ??? Sexual Activity: None Other Topics Concern ??? None Social History Narrative ??? None REVIEW OF SYSTEMS: Please see HPI for pertinent positives or negatives. A complete review of systems was performed and is otherwise negative. PHYSICAL EXAMINATION: Filed Vitals: 12/08/14 1400 BP: 108/69 Pulse: 57 Height: 5' 3 (1.6 m) Weight: 137 lb (62.143 kg) GENERAL APPEARANCE: no acute distress HEENT: Normocephalic, atraumatic, pupils equal, round, reactive CARDIOVASCULAR: Regular rate and rhythm PULMONARY: Inspiration and expiration without difficulty ABDOMEN: Soft, non tender, non distended PELVIC: External female genitalia normal. Bartholins and Skenes glands normal. Urethra normal. Vagina atrophic. Cervix grossly normal. Pelvic organ prolapse quantification examination Aa +3, Ba +3, C +3, Ap 0,Bp +3. Bimanual examination demonstrates a normal uterus, no adnexal masses palpable. Empty bladder supine stress test negative. Urethral hypermobility present EXTREMITY: No clubbing, cyanosis or edema NEURO: Alert and oriented x 3 PROCEDURE: After prepping the urethral with Betadine, straight catheterization was performed. A post void residual of 50 ml was obtained. A urinalysis and culture were sent. BLADDER DIARY: Pt did not complete a bladder diary prior to her visit. ASSESSMENT AND PLAN: 59 y.o. post menopausal female. Patient with stage III uterovaginal prolapse. Symptoms of stress urinary incontinence. Evidence of vaginal atrophy on exam. Regarding the patient's prolapse, we looked at anatomic pictures and diagrams. We discussed risk factors for the development and progression of prolapse. We discussed conservative management with a pessary as well as definitive surgical management. The patient previously used a pessary but would like to consider other options. We discussed vaginal, abdominal and laparoscopic approaches to surgery. We discussed holy cross tissue as well as mesh-augmented procedures. Given the patient's age and overall clinical picture, I have recommended a laparoscopic supracervical hysterectomy with bilateral salpingectomy (ovarian preservation), laparoscopic sacrocolpopexy. She will require preoperative urodynamic testing prior to surgery. A concomitant midurethral sling will be performed, if appropriate. We discussed the risks, benefits andalternatives to surgery. We also specifically discussed the FDA warning in regards to transvaginal mesh for prolapse repair. We discussed the most common complications associated with mesh including mesh exposure, pelvic pain and dysparuenia. The patient was counseled that these risks appear to be much lower when mesh is placed laparoscopically or abdominally for prolapse (as compared to vaginally) and that the FDA warning does not apply to sacrocolpopexy or midurethral sling. We discussed an overnight hospital stay. The patient understands that she will have 5 lb lifting restriction for 6 weeks following surgery. At the conclusion of her visit, the patient indicated that she will likely proceed with surgery but can't do so at this time. She will likely defer to the spring. In the interim, she may resumeuse of the pessary. I suspect that the bleeding that she had with pessary use previously was due to irritation in the setting of vaginal atrophy. As such, I have recommended that she use vaginal estrogen 1 g per vagina 2 times per week to help promote a healthy vaginal epithelium and prevent ulceration or erosion. She will also remove and leave the pessary out overnight 2 nights per week. To ensure no abnormality within the uterus contributing to the bleeding that she had previously, I have also ordered a pelvic ultrasound. The patient will contact me when she is ready to proceed with surgery. We will obtain a copy of her most recent Pap test. She will require preoperative urodynamic testing. Courtney Lee RN - 12/09/2014 1:47 PM CDT Quick Note: ua/uc normal documented in this encounter Miscellaneous Notes Miscellaneous - 10/05/2016 2:03 PM CDTNotes Recorded by Courtney Lee RN on 12/09/2014 at 1:47 PMua/uc normal Miscellaneous - 07/27/2016 6:41 AM CSTNotes Recorded by Courtney Lee RN on 12/09/2014 at 1:47 PMua/uc normal EMS INTEGRATOR Miscellaneous - 07/27/2016 6:41 AM CSTNotes Recorded by Courtney Lee RN on 12/09/2014 at 1:47 PMua/uc normal EMS INTEGRATOR documented in this encounter Plan of Treatment Not on filedocumented as of this encounter Procedures Procedure Name Priority Date/Time Associated Diagnosis Comme nts URINE MICROSCOPIC Routine 12/08/2014 3:19 PM Stress incontinen ce Results for this CDT procedure are i n the results section. URINALYSIS Routine 12/08/2014 3:19 PM Stress incontinence Re sults for this ROUTINE(MICRO IF CDT procedure a re in POS) the results section. URINE CULTURE Routine 12/08/2014 3:19 PM Stress incontinence R esults for this CDT procedure are i n the results section. documented in this encounter Results Urine Culture (12/08/2014 3:19 PM CDT) [facility] Method Time Signature Source Urine HP CONVERSION Site catheter HP CONVERSION in/out Urine Culture No growth HP CONVERSION Specimen (Source) Anatomical Collection Method Collection Time Re ceived Time Location / / Volume Laterality Urine:catheter 12/08/2014 3:19 PM in/out CDT Narrative HP CONVERSION - 12/09/2014 10:40 AM CDT Performed at [facility] , ??[address] [place] [address], ?? CLIA Number [id number] Transcriptions 10/05/2016 2:03 PM CDTNotes Recorded by Courtney Lee RN on 12/09/2014 at 1:47 PMua/uc normal Mirian Rivas MD LAB_1 Performing Organization Address City/[facility]/ZIP Code Phon e Number HP CONVERSION URINALYSIS ROUTINE(MICRO IF POS) (12/08/2014 3:19 PM CDT) [facility] Method Time Signature Urine Type Urine:codie HP CONVERSION ter Turbidity Clear Clear HP CONVERSION U BILI Negative Negative HP CONVERSION Blood Urine Negative Negative HP CONVERSION Glucose, Negative Neg-30 HP CONVERSION Qualitative U mg/dL Ketones Negative Negative HP CONVERSION Leukocyte Negative Negative HP CONVERSION Esterase Urine Nitrite Urine Negative Negative HP CONVERSION pH Urine 7.0 5.0 - 8.0 HP CONVERSION Protein Urine Negative Neg - Trace HP CONVERSION mg/dL U Specific 1.004 1.005 - HP CONVERSION [place] 1.030 Urobilinogen Negative Negative HP CONVERSION Urine Eu/dL Specimen Anatomical Collection Method Collection Time Receive d Time (Source) Location / / Volume Laterality 12/08/2014 3:19 PM 5 3:40 CDT PM CDT Narrative HP CONVERSION - 12/08/2014 3:49 PM CDT Performed at [facility], [address] [place] [id number] Transcriptions 07/27/2016 6:41 AM CSTNotes Recorded by Courtney Lee RN on 12/09/2014 at 1:47 PMua/uc normal Mirian Rivas MD LAB_1 Performing Organization Address City/[facility]/ZIP [facility] Phon e Number HP CONVERSION URINE MICROSCOPIC (12/08/2014 3:19 PM CDT) athologist Signature Urine WBC None seen 0 - 4 /HPF HP CONVERSION Urine RBC None seen 0 - 2 /HPF HP CONVERSION Urine Mucus Occ /LPF HP CONVERSION Specimen Anatomical Collection Method Collection Time Receive d Time (Source) Location / / Volume Laterality 12/08/2014 3:19 PM 201 5 3:40 CDT PM CDT Narrative HP CONVERSION - 12/08/2014 4:02 PM CDT Performed at [facility], [address] [place] [id number] Transcriptions 07/27/2016 6:41 AM CSTNotes Recorded by Courtney Lee RN on 12/09/2014 at 1:47 PMua/uc normal Mirian Rivas MD LAB_1 Performing Organization Address City/State/ZIP Code Phon e Number HP CONVERSION documented in this encounter Visit Diagnoses Diagnosis Uterovaginal prolapse, incomplete - Prim bety Vaginal atrophy Postmenopausal atrophic vaginitis Post-menopausal bleeding Postmenopausal bleeding Stress incontinence Female stress incontinence documented in this encounter Care Teams Customer Relations Advisor Relationship Specialty Start Date End Date Martín Taylor MD PCP - General 01/04/07 [address] [place] [address] documented as of this encounter
--- OUTSIDE RECORDS SUMMARY | 2022-05-09 15:15 | XMS_ITS | Encounter Summary ---
:1955 Author Organization [facility] Address [address], [place] [address] Care Team Providers Name Role Phone Martín Taylor MD Primary Care Provider Reason for Referral Therapies (Routine) - Closed Specialty Diagnoses / Procedures Referred By Contact Refer red To Contact Diagnoses Abdominal pain, unspecified abdominal location Carrie Pratt PA-C [address] [employer] [address] [place], [place] [address] Referral ID Status Reason Start Date Expiration Date Visits Requ ested Visits Authorized [id number] Closed 02/21/2018 04/22/2018 1 1 Scheduling Instructions Your provider has recommended an appoint ment with [facility]. You may call [phone] to schedule your a ppointment. If you do not schedule an appointment within the next 1 to 3 in , we will call you to help arrange your appointment. We suggest you call [employer] about your coverage and benefits for this appointme nt. Reason for Visit Reason Comments CONSULT Encounter Details Date Type Department Care Team Description 02/21/2018 Initial Consult [facility] Valeriano Sands Abdomi nal pain, unspecified abdominal location (Primary Dx); Urogynecology BMD Pelvic pressure in female [address] [address] [facility] 5th Floor [phone] [place] [address] Social History Tobacco Use Types Packs/Day Years Used Date Smoking Tobacco: Former Cigarettes Quit : 12/08/1994 Smokeless Tobacco: Never Alcohol Use Standard Drinks/Week Comments Yes 0 (1 standard drink = 0.6 oz pure alcoho l) occassion Sex Assigned at Date Recorded Not on file documented as of this encounter Last Filed Vital Signs Vital Sign Reading Time Taken Comments Blood Pressure 104/66 02/21/2018 3:39 PM CDT Pulse 63 02/21/2018 3:39 PM CDT Temperature - - Respiratory Rate - - Oxygen Saturation - - Inhaled Oxygen Concentration - - Weight - - Height 161.3 cm (5' 3.5) 02/21/2018 3:39 PM CDT Body Mass Index - - documented in this encounter Progress Notes Valeriano Sands MD - 02/21/2018 3:40 PM CDT Not including the physical exam and procedure, I spent more than 60 minutes face to face with Dannielle Franklin and more than 50% of this time was spent in counseling about treatment options. The urogynecology nurse was present for today's encounter. Valeriano Sands MD - 02/21/2018 12:00 PM CDT NAME: DANNIELLE FRANKLIN MR#: [id number] CSN: [id number] AUTHENTICATING CLINICIAN: Valeriano Sands MD CONFIRM #: [id number] LOC: 210 CLINIC CONSULTATION DATE OF CONSULTATION: 02/21/2018 : 1955 REQUESTING PHYSICIAN: Dannielle Franklin came in on 02/21/2018, for initial consultation for a second opinion. SUBJECTIVE: Dannielle is a 63-year-old, who was last seen in our clinic in 2014, by my partner, Mirian Rivas. After that encounter, she went to the [facility] where she ultimately had an abdominal sacrocolpopexy procedure for symptomatic uterovaginal pelvic organ prolapse. Unfortunately, after that procedure, the patient developed some significant pain complications. She described basically abdominal pain ever since the surgery. She had gone through multiple therapies, including ultrasound-guided trigger point injections, E stim, pelvic floor physical therapy, all which she describes as not initially improving her symptoms. However, now that it has been over a year since her abdominal approach sacrocolpopexy, she is now describing reduction and discomfort in the abdomen. I did ask exactly the location of her pain and she describes a band location suprapubic, left lower all the way to the right lower quadrant. Right greater than left. In addition to her abdominal discomfort concerns, she also describes some vaginal fullness sensations and is wanting to be evaluated for possible recurrence of prolapse. As an aside, at [facility], she was diagnosed with pelvic tension and sent to [facility]. There, assessment was that they thought that the location of her abdominal pain was in the abdominal wall. Review of the patient's bladder diary shows no leakage episodes on day 1 or day 2. This is a normal diary. PAST MEDICAL HISTORY: Insomnia, hyperlipidemia. SURGICAL HISTORY: Total abdominal hysterectomy with bilateral salpingectomy, sacrocolpopexy, posterior colpoperineorrhaphy and has had a knee surgery. FAMILY HISTORY: Negative for incontinence or prolapse. SOCIAL HISTORY: The patient does not smoke. She does not drink. She does not use illicit drugs. She is an Latvian-speaking . GYNECOLOGIC HISTORY: The patient has had 1 and 1 miscarriage. She is postmenopausal, not on hormone-containing medications. MEDICATIONS: Reviewed and in [employer]. ALLERGIES: Reviewed and in Epic. REVIEW OF SYSTEMS: Of the 14 systems reviewed, other than those noted in the history and physical, the following were marked positive by the patient: None. PHYSICAL EXAM: VITAL SIGNS: Showed her to have a blood pressure of 104/66, pulse of 63, weight of 132 pounds, height of 5 feet 3-1/2 inches. GENERAL: She appeared well groomed, neurologically intact. PELVIC: Examination showed her to have essentially well-supported vagina. She has a grade 1 cystocele, which appears to be persistent/recurrent. She did have some posterior pressure pain with palpationup at the level of the cuff. There was stool in her rectum. Negative empty supine stress test. She had vaginal atrophy. The remainder of the pelvic examination was normal. At this time, I did focus my attention on the abdominal wall and careful examination with deep palpation showed there to be no masses or lesions, organomegaly which could be detected via a pelvic examination. However, I did isolate the area of discomfort and at approximately the insertion of the rectus abdominis to the pubic bone, the right side greater than left. I did have the patient perform a legraise, which allowed for the abdominal rectus muscle to tighten. This accentuated her discomfort which leads me to believe that this pain is muscle-related. DIAGNOSTIC DATA: The patient is asked to void. Then, using a catheter, postvoid residual of 20 cc was obtained. Therewere no white blood cells, red blood cells. ASSESSMENT: 1.Status post an abdominal hysterectomy, bilateral salpingectomy, sacrocolpopexy at the [facility] with persistent abdominal pain since the surgery. 2.Mild grade 1 cystocele. 3.Vaginal pain with posterior palpation at the vault. PLAN: Today, I spent time with Dannielle and her friend discussing my findings on physical examination as well as diagnostic testing. Based on our physical exam findings, it appears that all of her pain issues are truly coming from the abdominal wall and not from deeper structures. Reassurance was given. I would like for her to see Pelvic Floor Physical Therapy to see if there are any maneuvers that they can train the patient to perform which will over time improve her symptoms. As an aside, she did describe that her symptoms have been improving with time in general and this is reassuring. I counseled herregarding her very mild grade 1 cystocele. Reassurance was given and she will return to our clinic p.r.n. LOWW:ELAINE C: CONFIRM #: [id number] documented in this encounter Plan of Treatment Scheduled Referrals Name Type Priority Associated Diagnoses Order S sissy Physical Therapy Referral Routine Abdominal pain, unspecif ied Ordered: 02/21/2018 abdominal location documented as of this encounter Visit Diagnoses Diagnosis Abdominal pain, unspecified abdominal lo cation - Primary Pelvic pressure in female Other specified symptom associated with female genital organs documented in this encounter Care Teams Airline Attendant Relationship Specialty Start Date End Date Martín Taylor MD PCP - General 01/04/07 [address] [place] [address] documented as of this encounter
--- OUTSIDE RECORDS SUMMARY | 2022-05-09 15:15 | XMS_ITS | Encounter Summary ---
:1955 Author Organization [employer] Address [address] [place] [address] Care Team Providers Name Role Phone Martín Taylor MD Primary Care Provider Reason for Visit Reason Comments RESULTS, TEST Encounter Details Date Type Department Care Team Description 12/23/2014 [facility]phone [facility] Mirian Rivas, VASYL HORVATH, VICKI Urogynecology [address] [place] [address] [place], [place] [phone] (Wo rk) Social History Tobacco Use Types Packs/Day Years Used Date Smoking Tobacco: Never Assessed Sex Assigned at Date Recorded Not on file documented as of this encounter Nursing Notes Courtney Lee RN - 12/30/2014 5:12 PM CDT Attempted to obtain results from [facility]. Release of info needed. Pt notified. States she will obtain and have them fax results to us. Dannielle may not get to it until next week. Courtney Lee RN - 12/23/2014 5:40 PM CDT Pt returned call. Results given. Also asked pt for Last pap info. Was done at [facility]. Dr Taylor. [phone]. Was done last Feb or Mar. I will call to obtain records. Courtney Lee RN - 12/23/2014 5:27 PM CDT Left message for pt to call back for results or OK for a detailed message to be left on her voicemail. Courtney Lee RN - 12/23/2014 5:24 PM CDT ----- Message from Mirian Rivas MD sent at 12/21/2014 8:19 AM CDT ----- Please let pt know that her ultrasound showed 2 very small fibroids (benign). Both ovaries looked normal. She should call when she is ready to proceed with surgery for her prolapse. documented in this encounter Plan of Treatment Not on filedocumented as of this encounter Visit Diagnoses Not on filedocumented in this encounter Care Teams Extracting Machine Operator Relationship Specialty Start Date End Date Martín Taylor MD PCP - General 01/04/07 [address] [place] [address] documented as of this encounter
--- OUTSIDE RECORDS SUMMARY | 2022-05-09 15:15 | XMS_ITS | Encounter Summary ---
:1955 Author Organization [facility] Address [address] [place] [address] Care Team Providers Name Role Phone Unavailable Primary Care Provider Unavailable Reason for Visit Reason Comments Dental Concerns Encounter Details Date Type Department Care Team Description 02/12/1998 Telephone [facility] Concerns [address] [place], [place] [address] Social History Tobacco Use Types Packs/Day Years Used Date Smoking Tobacco: Never Assessed Sex Assigned at Date Recorded Not on file documented as of this encounter Nursing Notes 02/12/1998 11:59 PM CDT >> TRI MCKEE 02/12/1998 03:[address] Marks will contact patient 3:58 PM >> TRI MCKEE 02/12/1998 03:[address] Marks paged: 3:56 PM >> CALL RECEIVED. Contact: >> TRI MCKEE 02/12/1998 03:36 pm COMPLAINT: dental pain STAT SYMPTOMS: no stat sx per [facility]. ASSESSMENT: Symptoms started 02/11, onset: 2 day(s). Description/Location: crown, right lower. Associated symptoms: recent dental work 02/03 - temporary crown placed. Due for recheck 02/17 Dental problem/tooth pain: Consult on-call dentist:, *moderate to severe pain. [place] or filling problem: Call on-call dentist:, *moderate to severe pain. PLAN: Dr. Marks paged: 3:35 PM documented in this encounter Plan of Treatment Not on filedocumented as of this encounter Visit Diagnoses Not on filedocumented in this encounter
--- OUTSIDE RECORDS SUMMARY | 2022-05-09 15:15 | XMS_ITS | Encounter Summary ---
:1955 Author Reason for Visit *INFORMATION TECHNOLOGY DIRECTOR PROBLEM (NEW PATIENT) Assessment and Plan Assessment Note Total time 30 minutes including chart ruthann osei, time with patient and documentation on date of encounter 1. Vaginitis Affirm today to assess for infection, n egative ? bacterial vaginosis + vaginitis panel , vaginal ? urinalysis, dipstick 2. Atrophic vaginitis Suspect symptoms secondary to atrophy. Offered first line treatment with vaginal estrogen and she desired to try, she had taken this years prior. Reassured patient that vaginal cuff well-supported on exam , reviewed her op note to determine surgery that was done. Discussed sacrocolpopexy has lower risk of needing repeat operation vs other surgeries for prolapse. Prolapse t padmini of anterior compartment is overall mild. ? Premarin 0.625 mg/gram vaginal cream 3. Herpes simplex Discussed options of episodic treatment vs supression and she desires to try supression ? Valtrex 500 mg tablet Discussion Note: None recorded.Patient educational handouts: No information available. Plan of Care Reminders Provider Appointments None recorded. ? ? Lab Bacterial Vaginosis + 04/27/2022 [id number] lakeisha Vaginitis Panel, Vaginal ood ? Urinalysis, Dipstick 04/27/2022 [id number] maxine ood Referral None recorded. ? ? Procedures None recorded. ? ? Surgeries None recorded. ? ? Imaging None recorded. ? ? Medications Name Start Date ? ? amoxicillin 875 mg tablet ? TAKE ONE TABLET BY MOUTH TWICE DAILY UNTIL GONE lorazepam 2 mg tablet ? TAKE ONE TABLET BY MOUTH AT BEDTIME NEEDED for sle ep Premarin 0.625 mg/gram vaginal cream ? Insert 1/2 applicatorful vaginally at b edtime x 2 weeks, then 2-3 times per week for maintenance simvastatin 5 mg tablet ? TAKE ONE TABLET BY MOUTH ONE TIME DAILY AT BEDTIME trazodone 50 mg tablet ? TAKE ONE TABLET BY MOUTH AT BEDTIME valacyclovir 1 gram tablet ? TAKE ONE TABLET BY MOUTH ONE TIME DAILY FOR 3 DAYS valacyclovir 500 mg tablet ? Take 1 tablet by mouth daily for suppre ssion of HSV. If outbreak occurs take 1 tablet by mouth twice a day x 3 days Medications Administered None recorded. Vitals Height Weight BMI Blood Pressure 5 ft 3.5 in 129 lbs 22.5 kg/m2 122/74 mm[Hg] Results Lab Results Date Name Specimen Result Interpretation Description Value Range Status Address ? 04/27/2022 Urinalysis, ? Result Clean ? ? [id number]: Dipstick Source Catch [address] [facility] [address], [place] ? ? ? Result negative ? ? Cc003_m ettadeo_dwayne: Glucose [address] [facility] (mg/DL) [address], [place] ? ? ? Result negative ? ? Cc003_m ettadeo_dwayne: Bilirubin [address] [facility] [address] /Negative [address], [place] ? ? ? Result negative ? ? Cc003_m ettadeo_dwayne: Ketones/N [address] [facility] [address] egative [address], [place] ? ? ? Result 1.015 ? ? [id number] tadeo_dwayne: Specific [address] [facility] [address] [place], [place] .[address] ? ? ? Result negative ? ? Cc003_m ettadeo_dwayne: Blood/Neg [address] [facility] [address], [place] ? ? ? Result 6.5 ? ? [id number]_jzc tadeo_dwayne: pH/5.0 - [address] [facility] 9[address]0 [address], [place] ? ? ? Result negative ? ? Cc003_m ettadeo_dwayne: Protein/N [address] [facility] egative [address], [facility] [place] ? ? ? Result 0.2 ? ? [id number]_uyf tadeo_dwayne: Urobilino [address] [facility] [address], [place] (EU/dl)/ 0.2 - 1.0 ? ? ? Result negative ? ? Cc003_m etmeghanartandrae_kianwood: Nitrite [address] [facility] [address], [place] ? ? ? Result negative ? ? Cc003_m etropartners_hazelwood: Leukocyte [address] [facility] s/Negativ [address], [place] e ? ? ? Result yellow ? ? [id number]_tqk [facility]: Color/ [address] [place] [address] [address], [place] ? ? ? Result clear ? ? [id number]_vdx [facility]: Appearanc [address] [facility] [address] [facility], [place] 04/27/2022 Bacterial Norm Gardnere Negative nega Estela [id number]_swivjvwafxlkj_xaxsyweox: Vaginosis + al lla tive l [address] [place] [address] Vaginitis [address], [facility] [place] Panel, Vaginal ? ? Norm Trichomo Negative nega Estela [address]: al mario tive l [address] [place] [address], [place] ? ? Norm Aditi Negative nega Estela [address]: al tive l [address] [place] [address], [place] Allergies Code Code System Name Reaction Severity Onset 3640 RxNorm Doxycycline ? ? ? Sulfa (Sulfonamide Antibiotics) ? ? ? Problems No Known Problems Procedures Date Name Performed by ? 01/27/2017 Total Hysterectomy Information not avai lable Notes: Total abdominal with bilateral tubes, ovaries still there 06/18/1989 Knee Arthroscopy/surgery Information not available Notes: ACL recontruction Vaccine List None recorded. Social History Tobacco Smoking Status Never Smoker What was the date of your most recent tobacco screening? 03/2022 Are you sexually active? Y What is your relationship status? Single Family History Relation Problem Onset Age of Age Notes Father No current problems or (No Information) N/A ( No Notes) disability Mother No current problems or (No Information) N/A ( No Notes) disability Functional Status Unknown. Past Encounters 04/27/2022 Vaginitis; Atrophic Vaginitis; Herpes Si mplex Darby Michael MD: [address] [place] [phone], Ph. History of Present Illness ? Vaginal/ Vulvar Problem (Pre rhonda) Reported By: Patient HPI: * Location: vaginal , urethr a Notes: <div>Dannielle presents today for evaluation of her vagina. She had a HERMINIO/BS with an abdominal sac rocolpopexy back in 2017 for pelvic organ prolapse. She works with a p [employer]. Lately she has felt some tissue near her vaginal open ing and whiteness around her urethra. wonders if this is normal. S he denies any urinary symptoms. </div><div>
</div><div>Sh giuliana also has HSV with history of genital and oral outbreaks. She takes va ltrex for episodic treatment but feels like she is taking it for prodrom al symptoms or an outbreak frequently.</div><div>
</ div><div>She is recently sexually active with a new partner. Feels sy mptoms started after becoming sexually active again. Denies pain wi th sex and she does feel adequately lubricated.</div> Review of Systems ? Comprehensive ROS ([id number]) Reported By: Patient Constitutional: Constitutional: no constitut ional problems, no fever, no chills, no fatigue, normal a ppetite, no significant weight change, normal activity HEENT: Eyes no eye problems, no vis ion changes, no eye pain. Ears no ear problems, no hearing los s, no ear pain, no tinnitus. Nose no nose problems. Mouth/Thro at no mouth/throat problems, no mouth problems, no teeth pro blems, no sore throat Lungs: Lungs: no lung problems, no cough, no wheezing, no sputum production, no shortness of breath, no coughing up blood Cardiovascular: Cardiovascular: no cardiovas cular problems, no chest pain, no palpitations, no swelling in extremities, no varicosities, no orthopnea Breast: Breast: no breast problems, no masses, no tenderness, no skin changes, no nipple discharge Gastrointestinal: Gastrointestinal: no gastroi ntestinal problems, no abdominal pain, no nausea, no vomiting , no constipation, no bloating, no diarrhea, no heartburn, no b owel movement changes, no rectal bleeding, no accidental duane l leakage Genitourinary: Genitourinary: no genitourin bety problems, no urinary urgency, no urinary frequncy, no pain ful urination, no flank pain, no pelvic pain, no blood in uri ne, no nocturia, no trouble initiating urinary stream, n o involuntary loss of urine, no incomplete emptying, no disc harge, no odor, no itching, no burning, no irritation, no l esions, no vaginal protrusion Endocrine: Endocrine no endocrine probl ems, no change in thirst, no change in appetite, no cold intolerance, no heat intolerance. Menstrual no menstrual probl ems, regular menses, normal menstrual flow, no painful p eriods, no PMS Symptoms. Menopausal no menopausal sym ptoms. Sexual no sexual problems Musculoskeletal: Musculoskeletal: no musculos keletal problems, no muscle aches, no muscle weakness, no joint pain, no back pain Neurological: Neurological: no neurologica l problems, no headache, no dizziness, no numbness, no m néstor loss, no seizures, no tingling, no loss of conscio usness, no impaired concentration Hematologic/Lymphatic: Hematologic/Lymphatic: no he matologic/lymphatic problems, no swollen glands, no easy brui sing, no excessive bleeding Skin: Skin: no skin problems, no r ashes, no abnormal moles, normal hair pattern, no itching Psychiatric: Psychiatric: no psychiatric problems, no depression, no anxiety, no irritability, no sleep disturbances, no substance abuse, no suicidal thoughts, no homicidal thoughts Allergic/Immunologic: Allergic/Immunologic: no all ergic/immunologic problems, no itching, no hives, no sneezi ng, no watery eyes, no runny nose Physical Exam ? /Meeting Manager Problem Reported By: Patient Constitutional: General Appearance: healthy- appearing, well-nourished, well-developed Psychiatric: Orientation: to time, to charissa ce, to person. Mood and Affect: active and alert, normal mood, norm al affect Abdomen: Auscultation/Inspection/Palp ation: normal bowel sounds, soft, non-distended, no tenderness , no hepatomegaly, no splenomegaly, no masses, no CVA tenderness. H ernia: none palpated Female Genitalia: Vulva: no masses, no atrophy , no lesions. Bladder/Urethra: normal meatus, no urethral discharg e, no urethral mass, bladder non distended; normal but tissue appears atrophic. Vagina no tenderness, no erythema, no abnormal vaginal discharge, no vesicle(s) or ulcers, no cys tocele, no rectocele; mild cystocele, but wella brett hymen even wi th valsalva. Vaginal cuff well supported. Adnexa/Parametria : no parametrial tenderness, no parametrial mass, no adnexal tenderness, no ovarian mass
--- OUTSIDE RECORDS SUMMARY | 2022-05-09 15:15 | XMS_ITS | Clinical Summary ---
:1955 Author Organization [facility] [place] [address] Care Team Providers Name Role Phone Carmen King MD Primary Care Provider Allergies Active Allergy Reactions Severity Noted Date Comments Sulfa (Sulfonamide Antibiotics) Rash, Itching 04/19/20 07 Medications Medication Sig Dispensed Refills Start Date End Date Status cholecalciferol Take 1 capsule 0 09/18/2011 Active (VITAMIN D) 1,000 unit by mouth once capsule daily. omega-3 fatty Take by mouth. 0 09/18/2011 Active acids-vitamin E (FISH Takes 2 capsules OIL) 1,000 mg Cap by mouth daily. calcium carbonate Take 1 tablet by 0 12/05/2011 Active (CALCIUM ANTACID) 200 mouth 3 times mg calcium (500 mg) daily with chewable tablet meals. traZODone (DESYREL) 50 Take 2 tablets 180 tablet 3 05/06/2020 Active mg tabletIndications: by mouth at Sleep disturbance bedtime. melatonin 3 mg Take 1 tablet by 0 05/06/2020 Active tabletIndications: mouth once Sleep disturbance daily. fluticasone (50 mcg per Inhale 2 Sprays 0 09/17/2020 Active actuation) nasal into affected solution (FLONASE) nostril(s) at bedtime. LORazepam (ATIVAN) 2 mg Take 0.5 - 1 30 Tablet 0 10/28/2020 Active tabIndications: Sleep tablet by mouth disturbance once daily at bedtime as needed for sleep Active Problems Problem Noted Date Genital prolapse, old laceration of muscles of pelvic floor 05/01/2017 Generalized anxiety disorder 04/17/2017 Hyperlipidemia 04/17/2017 Lateral epicondylitis of elbow 04/19/2007 Congenital spondylolisthesis 04/19/2007 Degeneration of lumbar or lumbosacral intervertebral d isc 04/19/2007 Immunizations Name Administration Dates Next Due Influenza, IIV4 (=>6mos) MDV 04/09/2020 Tdap 05/17/2016 Zoster (Shingrix-RZV, recombinant) 07/12/2018, 03/14/2018 Zoster (Zostavax-ZVL, live) 11/20/2012 Family History Medical History Relation Name Comments Cancer-breast Other cousins- paterna l Cancer-breast Sister Relation Name Status Comments Other Sister Social History Tobacco Use Types Packs/Day Years Used Date Former Smoker Cigarettes 1.5 20 Quit: 06/18/18 92 Smokeless Tobacco: Never Used Tobacco Cessation: Counseling Given: Yes Alcohol Use Standard Drinks/Week Comments Yes 0 (1 standard drink = 0.6 oz pure alcoho l) occasional Alcohol Habits Answer Date Recorded How often do you have a drink containing alcohol? 2-4 times a month 06/16/2020 How many drinks containing alcohol do you have on a 1 or 2 06/16/2020 typical day when you are drinking? How often do you have six or more drinks on one Not asked occasion? Comment: Not asked Sex Assigned at Date Recorded Not on file Obstetrics History Last Filed Vital Signs Vital Sign Reading Time Taken Comments Blood Pressure 101/70 10/07/2020 3:23 PM CDT Pulse 76 10/07/2020 3:23 PM CDT Temperature 36.8 ??C (98.3 ??F) 11/16/2011 3:38 PM CDT Respiratory Rate - - Oxygen Saturation 97% 10/07/2020 2:33 PM CDT Inhaled Oxygen Concentration - - Weight 59.2 kg (130 lb 8 oz) 10/07/2020 2:33 PM CDT Height 160 cm (5' 3) 05/06/2020 8:17 AM PLASTER PATTERNMAKER Body Mass Index 23.12 05/06/2020 8:17 AM PLASTER PATTERNMAKER Plan of Treatment Health Maintenance Due Date Last Done Comments DEXA/DXA scan for age 65+ 01/04/2021 05/12/2020 Pneumococcal series for 01/04/2021 age 65+ (1 - PCV) BMI (ht and wt on same 05/06/2021 05/06/2020 day) for age 18+ Depression screening for 05/10/2021 05/10/2020, 05/06/2020, age 12+ 05/06/2020 Mammogram for age 45-75 05/12/2021 05/12/2020 COVID-19 vaccine series (4 07/23/2021 05/28/2021, , - Booster for Pfizer 09/10/2020 series) Influenza for age 65+ 02/16/2022 04/09/2020 Lipids for age 45-75 05/06/2025 05/06/2020 Tetanus booster 05/17/2026 05/17/2016 Colonoscopy through age 75 05/22/2028 05/22/2018 (Verified in Care Everywhere or Patient Record), 01/04/2006 (Verified in Care Everywhere or Patient Record) Tdap Completed 05/17/2016 Zoster (shingles) series Completed 07/12/2018, 03/14/2018, for age 50+ 11/20/2012 Hepatitis C screening for Addressed 05/23/2019 (Verified i n Overridden with the age 18-79 Care Everywhere or intention of not Patient Record) completing the t opic Results Not on filefrom Last 3 Months Insurance Payer Benefit Plan / Subscriber ID Effective Dates Phone Addre ss Type Group [employer] HP [id number] 2017-Present [address] [place] [address] Care Teams Manager Ambulatory Relationship Specialty Start Date End Date Carmen King MD PCP - General Family Practice 05/27/20 [address] [place] [address]
--- NOTE | 2022-05-09 15:20 | CRLHL7_ITS ---
For Patients: As a result of the Century Cures Act, medical imaging exams and procedure reports are released immediately into your electronic medical record. You may view this report before your referring provider. If you have questions, please contact your health care provider. BILATERAL SCREENING MAMMOGRAM WITH COMPUTER-AIDED DETECTION AND TOMOSYNTHESIS TECHNIQUE: CC and MLO views were obtained. These mammographic images have been obtained using full-field digital technique. These mammographic images were interpreted with the benefit of computer-aided detection. Breast Tomosynthesis was used in this interpretation. COMPARISON FILM: 05/19/21, 05/23/19. FINDINGS: There are scattered areas of fibroglandular density IMPRESSION: There is no radiographic evidence for malignancy. ASSESSMENT: BI-RADS Category 1: Negative RECOMMENDATION: Routine screening mammogram in 1 year. A lay language report of this examination will be provided to the patient. Valeriano Castaneda M.D. Diagnostic Radiologist [email or web address] MATT/Dictated by: Valeriano Castaneda MD @ 05/10/2022 12:46:00 PM (Electronically Signed)
== END 2022-05-09 15:14 | disposition home or self-care (01) ==
LOC: MAMMO 15:13
PROVIDERS: PCP Internal Medicine; Visit Provider Internal Medicine
DX: Z12.31 Encounter for screening mammogram for malignant neoplasm of breast (principal)
CPT/HCPCS: 77063; 77067

== ENCOUNTER 2022-08-15 07:43 | Outpatient (CLI) | payer MEDICARE, BC, SELFPAY ==
--- OUTSIDE RECORDS SUMMARY | 2022-08-15 07:45 | XMS_ITS ---
:1955 Author Name None, No PCP Care Team Providers Name Role Phone None, No PCP Unavailable Unavailable PROBLEMS Unknown Problems ALLERGIES No Information IMMUNIZATIONS No Known Immunizations SOCIAL HISTORY Never Assessed REASON FOR REFERRAL FUNCTIONAL STATUS PLAN OF CARE VITAL SIGNS MEDICATIONS Unknown Medications PROCEDURES No Known procedures RESULTS No Results REASON FOR VISIT Insurance Providers [facility] Health Member Patient Patient Patient Patient Patient Subscriber Subscriber Subscriber Group Insurance Plan Plan Plan Plan ID Relationship Address Phone Name Date of ID Name Date of No Type Insurance Insurance Insurance Coverage to Subscriber Address Phone Name Dates HealthPart [address] HealthPart self Dannielle [id number] [id number] [place] [id number]
[2022-08-15 09:45] LABS: Cholesterol* 193 mg/dL (90-199); HDL Cholesterol* 86 mg/dL (>=50); LDL Cholesterol Calculated 97 mg/dL (<100); Triglycerides* 52 mg/dL (40-149)
== END 2022-08-15 07:44 | disposition home or self-care (01) ==
PROVIDERS: PCP Internal Medicine; Visit Provider Internal Medicine
DX: E78.5 Hyperlipidemia, unspecified (principal)
CPT/HCPCS: 80061

== ENCOUNTER 2023-03-28 08:00 | Outpatient (CLI) | payer MEDICARE, BC, SELFPAY | END 2023-03-28 08:01 | disposition home or self-care (01) | LOC: NFLDREF 03-29 08:28 | PROVIDERS: PCP Internal Medicine; Referring Provider Internal Medicine; Visit Provider Internal Medicine | DX: E78.5 Hyperlipidemia, unspecified (principal); M85.88 Other specified disorders of bone density and structure, other site | CPT/HCPCS: 80061; 82306 ==

== ENCOUNTER 2023-05-09 08:08 | Outpatient (CLI) | payer MEDICARE, BC, SELFPAY ==
--- NOTE | 2023-05-09 08:14 | CRLHL7_ITS ---
For Patients: As a result of the Century Cures Act, medical imaging exams and procedure reports are released immediately into your electronic medical record. You may view this report before your referring provider. If you have questions, please contact your health care provider. Technique: Double-contrast esophagram performed after the uneventful administration of effervescent crystals and thick barium followed by thin barium. Fluoroscopy time 43 seconds. Indication: Dysphagia Comparison: None. Findings: Esophagus: Small sliding hiatal hernia noted with mildly decreased clearance of contrast from the esophagus. No stricture or mucosal irregularity. Gastroesophageal reflux: Mild. Impression: Small sliding hiatal hernia with mild decreased esophageal motility and mild GERD. Dictated by Valeriano Castaneda MD @ 05/09/2023 10:10:19 AM (Electronically Signed)
== END 2023-05-09 08:09 | disposition home or self-care (01) ==
LOC: RAD 08:09
PROVIDERS: PCP Internal Medicine; Visit Provider Internal Medicine
DX: R13.10 Dysphagia, unspecified (principal); K44.9 Diaphragmatic hernia without obstruction or gangrene
CPT/HCPCS: 74221

== ENCOUNTER 2023-05-17 13:20 | Outpatient (CLI) | payer MEDICARE, BC, SELFPAY ==
--- NOTE | 2023-05-17 13:30 | CRLHL7_ITS ---
For Patients: As a result of the Century Cures Act, medical imaging exams and procedure reports are released immediately into your electronic medical record. You may view this report before your referring provider. If you have questions, please contact your health care provider. DXA BONE MINERAL DENSITY STUDY Reason for exam: Screening. Current height (in): 63. Weight (lb): 125. Menopause age: 51. Ethnicity: White. 1. Have you had a previous hip or vertebral fracture? No. 2. Have you had any fractures during your adult life which did not result from significant trauma (e.g., auto accident)? No. 3. Did either of your parents have a hip fracture? Yes. 4. Do you smoke? No. 5. Have you ever taken Glucocorticoids? No. 6. Do you have rheumatoid arthritis? No. 7. Do you have secondary osteoporosis? No. 8. Do you drink 3 or more alcoholic drinks per day? No. 9. Are you being treated for osteoporosis? No. 10. Have you ever taken any of the following medications: Actonel, Evista, Fosamax, Miacalcin, Reclast, Boniva, Forteo, HRT (i.e., estrogen/hormone therapy), Protelos, Prolia, Vitamin D, Calcium, other ??? please specify. ANSWER: Yes, vitamin D and calcium. 11. Do you have any of the following medical conditions: Anorexia or bulimia, asthma or emphysema, end stage renal disease, hyperparathyroidism, any seizure disorders, cancer, inflammatory bowel diseases, hysterectomy, other ??? please specify. ANSWER: Yes, hysterectomy. 12. What was your maximum height (inches)? 64. 13. Do you perform weight bearing exercise regularly? Yes. 14. Do you regularly consume dairy products? No. 15. Do you drink caffeinated beverages? Yes. If female: 16. At what age did your period start? 14. 17. Are you premenopausal? No. 18. How many full-term pregnancies have you had? 1. 19. Have you ever missed your period for more than 6 months in a row (not including or menopause)? No. TECHNIQUE: Bone mineral density study was performed using the QBE. FINDINGS: The results of the study expressed as bone mineral density (BMD) are as follows: Lumbar spine L2 to L4: BMD: 0.853 g/cm2. T-score: -2.1. Z-score: -0.1 Neck Left: BMD: 0.578 g/cm2. T-score: -2.4. Z-score: -0.8 Right: BMD: 0.574 g/cm2. T-score: -2.5. Z-score: -0.8 Total Left: BMD: 0.797 g/cm2. T-score: -1.2. Z-score: 0.2 Right: BMD: 0.820 g/cm2. T-score: -1.0. Z-score: 0.4 IMPRESSION: Osteoporosis. Valeriano Castaneda M.D. Diagnostic Radiologist [email or web address] SHARON/[email or web address] jmaster/Dictated by: Valeriano Castaneda MD @ 05/21/2023 6:41:00 AM (Electronically Signed)
== END 2023-05-17 13:21 | disposition home or self-care (01) ==
PROVIDERS: PCP Internal Medicine; Visit Provider Internal Medicine
DX: Z13.820 Encounter for screening for osteoporosis (principal); M85.88 Other specified disorders of bone density and structure, other site
CPT/HCPCS: 77080

== ENCOUNTER 2023-05-22 08:05 | Outpatient (CLI) | payer MEDICARE, BC, SELFPAY ==
--- NOTE | 2023-05-22 08:15 | CRLHL7_ITS ---
For Patients: As a result of the Cures Act, medical imaging exams and procedure reports are released immediately into your electronic medical record. You may view this report before your referring provider. If you have questions, please contact your health care provider. BILATERAL SCREENING MAMMOGRAM WITH COMPUTER-AIDED DETECTION AND TOMOSYNTHESIS TECHNIQUE: CC and MLO views were obtained. These mammographic images have been obtained using full-field digital technique. These mammographic images were interpreted with the benefit of computer-aided detection. Breast tomosynthesis was used in this interpretation. COMPARISON FILM: 05/09/22, 05/19/21, 05/23/19. FINDINGS: There are scattered areas of fibroglandular density. IMPRESSION: There is no radiographic evidence for malignancy. ASSESSMENT: BI-RADS Category 1: Negative RECOMMENDATION: Routine screening mammogram in 1 year. A lay language report of this examination will be provided to the patient. VALERIANO MILLER M.D. Diagnostic Radiologist [email or web address] SHARON/[email or web address] Transcribed: 05/22/2023, 2:[address]/Dictated by: Valeriano Miller MD @ 05/22/2023 10:26:00 AM (Electronically Signed)
== END 2023-05-22 08:06 | disposition home or self-care (01) ==
LOC: MAMMO 08:06
PROVIDERS: PCP Internal Medicine; Visit Provider Internal Medicine
DX: Z12.31 Encounter for screening mammogram for malignant neoplasm of breast (principal)
CPT/HCPCS: 77063; 77067

== ENCOUNTER 2023-08-09 10:12 | Outpatient (CLI) | payer MEDICARE, BC, SELFPAY | END 2023-08-09 10:13 | disposition home or self-care (01) | LOC: NFLDREF 10:15 | PROVIDERS: PCP Internal Medicine; Visit Provider Internal Medicine | DX: L29.9 Pruritus, unspecified (principal); R44.8 Other symptoms and signs involving general sensations and perceptions | CPT/HCPCS: 84443 ==

== ENCOUNTER 2023-08-15 09:15 | Outpatient (CLI) | payer MEDICARE, BC, SELFPAY ==
[2023-08-15 13:01] LABS: Chlamydia DNA Amplified* NOT DETECTED (No Detected); GC DNA Amplified* NOT DETECTED (No Detected)
== END 2023-08-15 09:16 | disposition home or self-care (01) ==
PROVIDERS: PCP Internal Medicine; Visit Provider Registered Nurse
DX: Z11.3 Encounter for screening for infections with a predominantly sexual mode of transmission (principal)
CPT/HCPCS: 82565; 84450; 84460; 84520; 86592; 86703; 86803; 87340; 87491; 87591

== ENCOUNTER 2023-11-13 16:29 | Outpatient (CLI) | payer MEDICARE, BC, SELFPAY ==
--- OUTSIDE RECORDS SUMMARY | 2023-11-15 10:12 | XMS_ITS | Clinical Summary ---
Author Organization [facility] Address [place], [place] [address] Care Team Providers Care Aluminum Pourer Name Role Phone Pcp, No Primary Care Provider Unavailabl e Allergies Active Allergy Reactions Criticality Noted Date Comments Sulfa (Sulfonamide Antibiotics) Rash,Itching Medications Medication Sig Dispensed Refills Start Date End Date Status cholecalciferol (VITAMIN D) 1,000 unit capsule Take 1 capsule by mouth once daily. 0 09/18/2011 Active omega-3 fatty acids-vitamin E (FISH OIL) 1,000 mg Cap Take by mouth. Takes 2 capsules by mouth daily. 0 09/18/2011 Active calcium carbonate (CALCIUM ANTACID) 200 mg calcium (500 mg) chewable tablet Take 1 tablet by mouth 3 times daily with meals. 0 12/05/2011 Active traZODone (DESYREL) 50 mg tabletIndications:Sl eep disturbance Take 2 tablets by mouth at bedtime. 180 tablet 3 05/06/2020 Active melatonin 3 mg tabletIndications:Sl eep disturbance Take 1 tablet by mouth once daily. 0 05/06/2020 Active fluticasone (50 mcg per actuation) nasal solution (FLONASE) Inhale 2 Sprays into affected nostril(s) at bedtime. 09/17/2020 Active LORazepam (ATIVAN) 2 mg tabIndications:Sleep disturbance Take 0.5 - 1 tablet by mouth once daily at bedtime as needed for sleep 30 Tablet 10/28/2020 Active Active Problems Problem Noted Date Diagnosed Date Genital prolapse, old laceration of muscles of p elvic floor 05/01/2017 Generalized anxiety disorder 04/17/2017 Hyperlipidemia 04/17/2017 Lateral epicondylitis of elbow 04/19/2007 Congenital spondylolisthesis 04/19/2007 Degeneration of lumbar or lumbosacral interverte bral disc 04/19/2007 Immunizations Name Administration Dates Next Due Influenza, IIV4 (=>6mos) MDV 04/09/2020 Tdap 05/17/2016 Zoster (Shingrix-RZV, recombinant) 07/12/2018, Zoster (Zostavax-ZVL, live) 11/20/2012 Family History Medical History Relation Name Comments Cancer-breast Other cousins- pater nal Cancer-breast Sister Relation Name Status Comments Other Sister Social History Tobacco Use Types Packs/Day Years Used Date Smoking Tobacco: Former Cigarettes 1.5 20 0 06/18/1971 - 06/18/1991 Smokeless Tobacco: Never Tobacco Cessation:Counseling Given: Yes Alcohol Use Standard Drinks/Week Comments Yes 0 (1 standard drink = 0.6 oz pur e alcohol) occasional PHQ-2 Answer Date Recorded PHQ-2 TOTAL SCORE 0 05/06/2020 Social Connections Answer Date Recorded Frequency of Communication with Friends and Fami ly Not on file 06/14/2021 Financial Resource Strain Answer Date R ecorded Difficulty of Paying Living Expenses Not on file 06/14/2021 Difficulty of Paying Living Expenses Not on file 06/14/2021 Sex and Gender Information Value Date Recorded Sex Assigned at Not on file Gender Identity Not on file Sexual Orientation Not on file Obstetrics History Last Filed Vital Signs Vital Sign Reading Time Taken Comments Blood Pressure 101/70 10/07/2020 3:23 PM CDT Pulse 76 10/07/2020 3:23 PM CDT Temperature 36.8 ??C (98.3 ??F) 11/16/2011 3:38 PM CD T Respiratory Rate - - Oxygen Saturation 97% 10/07/2020 2:33 PM CDT Inhaled Oxygen Concentration - - Weight 59.2 kg (130 lb 8 oz) 10/07/2020 2:33 PM CDT Height 160 cm (5' 3) 05/06/2020 8:17 AM JACK FRAME TENDER Body Mass Index 23.12 05/06/2020 8:17 AM JACK FRAME TENDER Plan of Treatment Health Maintenance Due Date Last Done Comments DEXA/DXA scan for age 65+ 01/04/2021 05/12/2020 Pneumococcal series for age 65+ (1 of 1 - PCV) 01/04/2021 BMI (ht and wt on same day) for age 18+ 05/06/2021 05/06/2020 Depression screening for age 12+ 05/10/2021 05/10/2020, 05/06/2020, 05/06/2020 Mammogram for age 45-75 05/12/2021 05/12/2020 COVID-19 vaccine series ( season) 2023 05/28/2021, 10/01/2020, 09/10/2020 Influenza for age 65+ 02/17/2024 04/09/2020 Lipids for age 45-75 05/06/2025 05/06/2020 Tetanus booster 05/17/2026 05/17/2016 Colonoscopy through age 75 05/22/202805/22 (Verified in Care Everywhere or Patient Record), 01/04/2006 (Verified in Care Everywhere or Patient Record) Tdap Completed 05/17/2016 Zoster (shingles) series for age 50+ Completed 07/12/2018, 03/14/2018, 11/20/2012 Hepatitis C screening for age 18-79 Addressed 05/23/2019 (Verified in Care Everywhere or Patient Record) Overridden with the intention of not completing the topic Procedures Procedure Name Priority Date/Time Associated Diagnosis Comments XR DXA BONE DENSITY 2 SITES AXIAL Routine 05/12/2020 3:59 PM JACK FRAME TENDER Osteopenia, unspecified location XR MAMMO ELSA BILAT SCREEN Routine 05/12/2020 7:45 AM JACK FRAME TENDER Visit for screening mammogram LIPID PANEL W REFLEX MEASURED LDL Routine 05/06/2020 9:28 AM JACK FRAME TENDER Screening for lipid disorders from Last 3 Months or Most Recently Relevant to Health Maintenance Results * (ABNORMAL) XR DXA BONE DENSITY 2 SITES AXIAL (05/12/2020 3:59 PM JACK FRAME TENDER) Anatomical Region Laterality Modality Spine, HIPS, HIPL, HIPR Other Narrative 05/25/2020 4:37 PM JACK FRAME TENDER Please see scanned document for results of this study. Carmen King MD DEXA * XR MAMMO ELSA BILAT SCREEN (05/12/2020 7:45 AM JACK FRAME TENDER) Anatomical Region Laterality Modality BREASTS, Breast Left, Breast Right Bilateral Mammography Impressions 05/21/2020 3:44 PM JACK FRAME TENDER ??There is no radiographic evidence for malignancy. ??Recommend annual mammograms. A lay language report of this examination will be provided to the patient. MAMMOGRAM ASSESSMENT: ??ACR 1 Negative Narrative 05/21/2020 3:44 PM JACK FRAME TENDER XR MAMMO ELSA BILAT SCREEN [[id number]] CLINICAL HISTORY: ??This is an asymptomatic 65 y.o. patient. INDICATION FOR EXAM: Mammogram Screening. TECHNIQUE: CC & MLO views were obtained. ??This digital study was evaluated with the assistance of Computer-Aided Detection. Breast Tomosynthesis was used in interpretation. COMPARISON FILM: Yes 05/23/19 [facility] 05/17/18 [facility] FINDINGS: ??Mammographically, the breast tissue has scattered fibroglandular densities. ??There are no dominant masses, suspicious micro calcifications or areas of architectural distortion. Martín Taylor MD MAMMO * (ABNORMAL) LIPID PANEL W REFLEX MEASURED LDL [[id number]] (05/06/2020 9:28 AM JACK FRAME TENDER) CHOLESTEROL,TOTAL 238(H) 100 - 199 mg/dL 05/06/2020 6:06 PM [facility] TRIGLYCERIDES 86 <150 mg/dL 05/06/2020 6:06 PM [facility] HDL CHOLESTEROL 70 >40 mg/dL 0 6:06 PM [facility] FRAME [facility] NON-HDL CHOLESTEROL 168(H) <145 mg/dl 05/06/2020 6:06 PM [facility] CHOL/HDL RATIO 3.40 <4.50 05/06/2020 6:06 PM [facility] LDL CHOLESTEROL 151(H) <=130 mg/dL 05/06/2020 6:06 PM [facility] PROVIDER ORDERED STATUS RANDOM 05/06/2020 6:06 PM JACK FRAME TENDER [facility] Blood BLOOD SPECIMEN / Unknown Venipuncture / Unknown 05/06/2020 9:28 AM JACK FRAME TENDER 05/06/2020 9:28 AM JACK FRAME TENDER Carmen King MD CHEMISTRY [facility] [address] [place] [address], from Last 3 Months or Most Recently Relevant to Health Maintenance Care Teams Aluminum Pourer Relationship Specialty Start Date End Date Pcp, No . PCP - General 12/27/22
--- OUTSIDE RECORDS SUMMARY | 2023-11-15 10:13 | XMS_ITS | Clinical Summary ---
Author Organization [facility] Address [address] [place] [address] Care Team Providers Care Data Support Specialist Name Role Phone Martín Taylor MD Primary Care Provider Source Comments You are receiving this document as you are listed as the primary care provider,follow-up provider, or the patient has been referred to you for consultation.This is in compliance with the Medicare and[facility] EHR Incentive Program,which states Providers who transition their patient to another setting of careor provider of care or refers their patient to another provider of care shouldprovide summary care record for each transition of care or referral. [employer] Allergies Active Allergy Reactions Criticality Noted Date Comments Sulfa Antibiotics Itching,Rash 12/08/2014 [facility] Reaction: Itching; [facility] Reaction: Rash; [facility] Severity: Med Medications Medication Sig Dispensed Refills Start Date End Date Status omega-3 fatty acids (FISH OIL) 1000 MG capsule Take 1 capsule by mouth daily (every 24 hours). 12/08/2014 Active cholecalciferol (AKA VITAMIN D3) 1000 UNITS tablet Take 1,000 Units by mouth daily (every 24 hours). 12/08/2014 Active Calcium Carbonate-Vitamin D (CALCIUM 600+D OR) Take 1 tablet by mouth daily (every 24 hours). 12/08/2014 Active Magnesium 200 MG Take 1 tablet by mouth 3 times daily. 12/08/2014 Active traZODone (DESYREL) 50 MG tablet Take 50 mg by mouth. 03/19/2017 Active atorvastatin (LIPITOR) 10 MG tablet Take 5 mg by mouth. 05/17/2016 Active LORazepam (ATIVAN) 2 MG tablet Take 2 mg by mouth. 02/21/2017 Active Active Problems Problem Noted Date Diagnosed Date Genital prolapse, old laceration of muscles of p elvic floor 05/01/2017 Generalized anxiety disorder 04/17/2017 Hyperlipidemia 04/17/2017 Lateral epicondylitis 04/19/2007 Degeneration of lumbar or lumbosacral interverte bral disc 04/19/2007 Congenital spondylolisthesis 04/19/2007 Immunizations Name Administration Dates Next Due Flu Vac (3+ yrs) 03/07/2016,03/15/2015 Flu Vac Preserv Free (3+yrs) 04/09/2001 Influenza (Flucelvax), Preserv Free 03/27/2018,1 ,03/18/2013 Influenza IIV4 (Quadrivalent) 0.5mL (85195) 09/2018 Influenza IIV4 (Quadrivalent ) Fluzone, 65+ Yrs 02/15/2012 TDAP (ADACEL) 05/17/2016 Zoster (Zostavax) 11/20/2012 Zoster RZV (Shingrix) 07/12/2018,03/14/2018 Family History Medical History Relation Name Comments Cancer, Prostate Father Heart Disease Mother Had valve repl acement Cancer, Breast Cousin paternal Mental Disorder Maternal Grandfather Alzh eimer's Disease Cancer, Other Sister 2 Cervical Cance r Cancer, Breast Negative Family History Cancer, Colon Negative Family History Cancer, Uterine Negative Family History Prolapse/Pelvic Parts Fallin g Down Negative Family History Urinary Incontinence Negative Family History Relation Name Status Comments Father Mother Cousin paternal Alive Maternal Grandfather Sister 1 Sister 2 Social History Tobacco Use Types Packs/Day Years Used Date Smoking Tobacco: Former Cigarettes Q uit: 12/08/1994 Smokeless Tobacco: Never Alcohol Use Standard Drinks/Week Comments Yes 0 (1 standard drink = 0.6 oz pur e alcohol) Occasional Use Sex and Gender Information Value Date Recorded Sex Assigned at Not on file Gender Identity Not on file Sexual Orientation Not on file Last Filed Vital Signs Vital Sign Reading Time Taken Comments Blood Pressure 145/69 06/25/2019 4:01 PM SUPERVISOR FACEPIECE LINE Pulse 61 06/25/2019 4:01 PM SUPERVISOR FACEPIECE LINE Temperature - - Respiratory Rate - - Oxygen Saturation - - Inhaled Oxygen Concentration - - Weight 62.1 kg (137 lb) 12/08/2014 2:00 PM CDT Height 161.3 cm (5' 3.5) 02/21/2018 3:39 PM CDT Body Mass Index 24.27 12/08/2014 2:00 PM CDT Plan of Treatment Health Maintenance Due Date Last Done Comments Hep C Screening (Preventive Services) 1955 Mammogram 1955 Adult Preventive Visit 01/04/1974 Cologuard (Stool DNA) 2000 Cholesterol 01/04/2001 Pneumococcal 65+ Yrs (1 - PCV) 01/04/2021 COVID-19 Vaccine (3 - season) 2023 10/01/2020, 09/10/2020 Influenza (Season Ended) 2024 020, 03/21/2019, 03/27/2018, Additional history exists DTaP/Tdap/Td (2 - Tdap) 05/17/2026 05/17/2016 Dexa Completed 02/15/2012 (Completed) Zoster/Shingles Completed 07/12/2018, 02/17, 11/20/2012 HepA Aged Out No longer eligi ble based on patient's age to complete this topic HepB Aged Out No longer eligi ble based on patient's age to complete this topic Hib Aged Out No longer eligi ble based on patient's age to complete this topic IPV (Polio) Aged Out No longer eligi ble based on patient's age to complete this topic MCV4 Aged Out No longer eligi ble based on patient's age to complete this topic Care Teams Data Support Specialist Relationship Specialty Start Date End Date Martín Taylor MD [address] [place] [id number] PCP - General 01/04/07
== END 2023-11-13 16:30 | disposition home or self-care (01) ==
LOC: NFLDREF 11-15 10:09
PROVIDERS: PCP Internal Medicine; Referring Provider Internal Medicine; Visit Provider Nurse Practitioner Family
DX: R07.9 Chest pain, unspecified (principal); R10.13 Epigastric pain; R07.89 Other chest pain
CPT/HCPCS: 84484

== ENCOUNTER 2024-05-06 13:00 | Outpatient (RCR) | payer MEDICARE, BC, SELFPAY ==
--- NOTE | 2023-12-19 17:26 | PT.OPEX ---
PT [facility] Outpatient Eval PT [facility] Outpatient Eval Start: 12/19/23 13:07 Freq: Status: Active Protocol: Document 12/19/23 13:08 LUCILLE (Rec: 12/19/23 17:23 LUCILLE [id number]) E-signed By Lisa Hill, PT Physical Therapy Outpatient Evaluation Insurance Information Insurance Name Medicare B,Blue Cross/Blue Shield Medical Diagnosis urinary urgency/frequency Treating Diagnosis Urinary frequency, Hip stiffness, scoliosis Referring Molly Plascencia Subjective Subjective She feels like there is a bubble that is in her urethra and bursts. Had prolapse repair in 2017 with a 2 yr pain experience after. She has done pelvic floor PT several times. She urinates frequently in the day, approx 11 times. She takes Mg that probably causes looser stools, but no longer constipated. Occassional POLO c full bladder and a laugh. She has been told she overhydrates in the past. Denies pelvic and abdominal pain. She does yoga, walks every day 10k steps. She does feel like her deep core canister has improved. Has estrodal, but intermittent compliance. 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 Her volume of intake is ~ 74 oz, but she does have increased bladder irritants like coffee. She does also have h/o just in case/ behavioral component. She is active and working to maintain gains made in previous episodes of care. Her leakage is more with urgency than stress events. She is increased in hip stiffness R>L . Sacral mobility limited on R as well, bunion present on R as well. Plan of Care Rehabilitation Potential Good Physical Therapy Goals Feel more in control with a kegel ex and improved coordination in 12 weeks for dynamic pelvic floor control. Pt will report not have pockets of urine with bladder emptying more completely on first attempt in 10 weeks. Pt will be indep c HEP To improve symmetry of forces across pelvis c LE strength and flexibility in 6 weeks. Coordination/Communication With Referral Source Treatment Plan/Direct Interventions Electrical Stimulation,Gait Training,Heat,Manual Therapy, Neuromuscular Re-ed,Self-Care/ Home Management,Therapeutic Activities,Therapeutic Exercises,Ultrasound Frequency/Duration 1x/week for 12 weeks Patient Will Be Discharged From Therapy Completion of LTG(s),Skills Plateau,Independent w/HEP, Independently Progressing Evaluation Billing Untimed Code Treatment Minutes 40 PT Eval No Charge No Complexity Moderate Certification Information Initial Certification Date 12/19/23 Ending Certification Date 03/18/24 Provider Signature Required Yes Provider Signature Shows Agreement With POC & Medical Necessity Physician NPI Number Write NPI# Here Physician Comment/Change : Physician Signature & Date Requested Please Sign/Date Here
--- NOTE | 2024-04-16 14:08 | PT.OPDNX ---
PT [facility] Out[facility] Daily Note PT [facility] Out[facility] Daily Note Start: 12/19/23 13:07 Freq: Status: Active Protocol: Document 04/16/24 08:34 LUCILLE (Rec: 04/16/24 14:08 LUCILLE [id number]) E-signed By Lisa Hill, PT PT OP Daily Progress Note Visit Information Note Type Daily Note Visit Number [id number] Insurance Information Recert Due Date 07/15/24 Insurance Name Medicare B,Blue Cross/Blue Shield Medical Diagnosis urinary urgency/frequency Treating Diagnosis Urinary frequency, Hip stiffness, scoliosis Referring Molly Plascencia Subjective Preferred Name Dannielle Subjective Neck and hip are a little sore , but not nearly as bad as last time. The bladder has been more of an issue. She is noting increased dribbling when coming to stand from kneeling or deep squat, with or without load in arms. Pain Comments R bunion pain, L IT band pain, R UT pain, h/o scoliosis Precautions Treatment Precautions/Contraindications scoliosis, prolapse surgery cystocele and rectocele Home Exercise Home Exercise Comments Access Code: [email or web address] URL: [email or web address] Date: 12/27/2023 Prepared by: Lisa Hill Exercises - Seated Piriformis Stretch with Trunk Bend - 1 x daily - 7 x weekly - 1-2 sets - 1-2 reps - 30 sec hold - Seated Hamstring Stretch - 1 x daily - 7 x weekly - 1 sets - 10 reps - Seated Piriformis Stretch - 1 x daily - 7 x weekly - 1 sets - 1-2 reps - 30-60 hold - Toe Yoga - Alternating Great Toe and Lesser Toe Extension - 1 x daily - 7 x weekly - 1- 2 sets - 10 reps Recorded on phone: sacrum on ball -pelvic tilts -marching -LAQ UT stretch lev scap stretch wall angels scap retractions Objective Other/Pertinent Objective R hip IR limited L hip IT band tender R sacral mobility limited R SLS mild instability R bunion TA- good PITA- not present Ulnar N distribution impaired 03/24 Patient Instructed in Risks/Benefits Yes Manual Therapy Techniques Manual Therapy Minutes (minutes) 35 Manual Therapy Techniques STM to L lateral hip and glute med, TFL. Posterior hip at piriformis and HS Origin Facilitated Sciatic N glides Facilitated stretching c SLR and DF tension STM to bilat UT, scalenes, lev scap Neuromuscular Re-Ed Neuromuscular Reeducation Minutes ( 15 minutes) Neuromuscular Reeducation Comments lunge and return c exhale on return to stand x10 ea squat with glute form and exhale on return before starting to raise up x10, repeated with 10# weight at chest x10 lateral lunge and return c exhale x10 ea, c and s reach to floor Self Care Management Training Self-Care Activity Minutes (minutes) 15 Self Care Management Training Discussed canister breathing and short pilate's style ex to tune up Pelvic floor muscles. Discussed exhaling and pelvic floor contraction sequencing prior to return from squat, especially if lifting more than body weight. Use estrogen cream to support tissues Treatment Minutes Timed Code Treatment Minutes 65 Total Treatment Time 65 Billing Units Manual Therapy Units 2 Neuromuscular Reeducation Units 1 Self-Care Activity Units 1 Assessment/Impression Assessment/Impression Pt's cervical sx improved. Posterior chain and L hip structures irritable p squating and lifting activities. Her POLO is likely increased with stress and Valsalva with increased intra- abdominal pressure experienced . Plan of Care Physical Therapy Goals Feel more in control with a kegel ex and improved coordination in 12 weeks for dynamic pelvic floor control. Pt will report not have pockets of urine with bladder emptying more completely on first attempt in 10 weeks. Pt will be indep c HEP To improve symmetry of forces across pelvis c LE strength and flexibility in 6 weeks. Daily Plan of Care Continue per POC Daily Plan of Care Comments internal release/feedback prn Hip ROM/strength TA assessment c dynamic activation bladder mobs Recertification Information Initial Certification Date 12/19/23 Recertification Start Date 04/16/24 Recertification Due Date 07/15/24 Reasons to Continue Skilled Therapy Pt has been increasing workload on body with life status change of moving residences and has had changes in hip, cervical and pelvic floor coordination and comfort as a result. She will progress toward indep management of condition while recovering from flare. Rehabilitation Potential good with baseline scoliosis and multi-joint pain. She is active and motivated. Continued Plan of Care and Interventions Manual therapy with nerve glides and stretching for self carry over. Further core stability and pelvic floor coordination for symptom management. Provider Signature Shows Agreement With POC & Medical Necessity Physician Comment/Change Comment or Changes Physician NPI Number #
== END 2024-08-06 13:46 | disposition home or self-care (01) ==
PROVIDERS: PCP Internal Medicine; Visit Provider Internal Medicine
DX: R39.15 Urgency of urination (principal); R35.0 Frequency of micturition; S46.819A Strain of other muscles, fascia and tendons at shoulder and upper arm level, unspecified arm, initial encounter; M41.9 Scoliosis, unspecified; M25.659 Stiffness of unspecified hip, not elsewhere classified; Z51.89 Encounter for other specified aftercare
CPT/HCPCS: 97110; 97112; 97140; 97162; 97530; 97535

== ENCOUNTER 2024-06-09 09:20 | Outpatient (RCR) | payer MEDICARE, BC, SELFPAY ==
--- NOTE | 2024-06-02 09:14 | PC.NURSE ---
Diagnosis: Osteoporosis
--- NOTE | 2024-06-02 10:21 | URNOTE ---
Request received for authorization for Zolendronic Acid (Reclast) ([id number]). Prior authorization is not required as services are based on medical necessity and follow Medicare guidelines.
[2024-06-09 09:41] VITALS: BP 111/66; PULSE 67; RESP 16; TEMP 31.6; O2SAT 96
[2024-06-09] MEDS: ZOLEDRONIC ACID 5 mg/100 ml 100 ML 400 MG IVPB (10:43)
--- NOTE | 2024-06-09 12:24 | ONC.NURNOTE ---
Patients first dose. teaching was done and consent signed. questions answered. venice well. states had dental apt with no issues a month ago. enc her to let her dentist know she is receiving this med yearly at each dental visit.
== END 2024-12-06 23:59 | disposition home or self-care (01) ==
LOC: CCIC 09:20
PROVIDERS: PCP Internal Medicine; Referring Provider Internal Medicine; Visit Provider Clinical Nurse Specialist
DX: M81.0 Age-related osteoporosis without current pathological fracture (principal)
CPT/HCPCS: 96365; J3489

== ENCOUNTER 2025-03-03 09:25 | Outpatient (CLI) | payer MEDICARE, BC, SELFPAY | END 2025-03-03 09:26 | disposition home or self-care (01) | LOC: NFLDREF 03-09 00:54 | PROVIDERS: PCP Internal Medicine; Referring Provider Internal Medicine; Visit Provider Internal Medicine | DX: E78.5 Hyperlipidemia, unspecified (principal); M85.80 Other specified disorders of bone density and structure, unspecified site | CPT/HCPCS: 80061; 82306 ==

== ENCOUNTER 2025-05-26 08:34 | Outpatient (CLI) | payer MEDICARE, BC, SELFPAY | END 2025-05-26 08:35 | disposition home or self-care (01) | LOC: NFLDREF 06-01 17:47 | PROVIDERS: PCP Internal Medicine; Referring Provider Internal Medicine; Visit Provider Internal Medicine | DX: M81.0 Age-related osteoporosis without current pathological fracture (principal) | CPT/HCPCS: 80048 ==